=== PATIENT | male | born 1985 | race Caucasian/White ===

== ENCOUNTER 2017-09-27 09:56 | Day surgery (SDC) | payer OTHER ==
[~2017-09-27] VITALS: Ht 182.9 cm; Wt 116.2 kg
[~2017-09-27 09:56] MED LIST: ACET500 PO; ADAL40PEN; ADAL40PEN INJ; AZAT50 PO; CITA20 PO; CYCL10 PO; DIAZ10 PO; DIPATR PO; HYDACE5 PO; HYDR1TAB94 PO; IBUP800 PO; LAVAP17G PO; MECL12.5 PO; MESA250ER PO; MULVITA PO; Motion Sickness25 M1 PO; Norco 10-325 T1 EACH PO; Norco 5-325 Ta1 EACH PO; OMEP10ER PO; ONDA4ODT MM; OXYACE5T; OXYACE5T PO; OXYACE7.5T PO; OXYC5; OXYC5 PO; PRED10 PO; PRED20 PO; PRED5 PO; PROM25 PO; Percocet 5-3251 EACH PO; Prednisone20 MG PO; RABE20 PO; RXDIPATR PO; RXHYDACE PO; Roxicodone5 MG PO; SCOPOLAMINE1 EACH TD; SUCR1 PO; Tylenol325 MG PO; Zofran Odt4 MG SL; Zofran Odt8 MG SL
[2017-09-27] MEDS ORDERED: AZAT50 (10:21)
[2017-09-27] MEDS ORDERED: CYCL10 PO (10:21)
== END 2017-09-27 12:55 | disposition home or self-care (01) ==
LOC: ORSCSDS 09:56
PROVIDERS: Internal Medicine Gastroenterology
PROC: 0DBB8ZX Excision of Ileum, Via Natural or Artificial Opening Endoscopic, Diagnostic (ICD-10-PCS; principal; 2017-09-27 11:15)
PROC: 0DBN8ZX Excision of Sigmoid Colon, Via Natural or Artificial Opening Endoscopic, Diagnostic (ICD-10-PCS; principal; 2017-09-27 11:15)
PROC: 0DBE8ZX Excision of Large Intestine, Via Natural or Artificial Opening Endoscopic, Diagnostic (ICD-10-PCS; principal; 2017-09-27 11:15)
DX: K50.80 Crohn's disease of both small and large intestine without complications (principal); K63.5 Polyp of colon; Z79.899 Other long term (current) drug therapy
CPT/HCPCS: 88305; J2250; J7120

== ENCOUNTER 2018-10-05 13:25 | Emergency (ER) | payer OTHER ==
[~2018-10-05] VITALS: Ht 182.9 cm; Wt 111.1 kg
[~2018-10-05 13:25] MED LIST changes: +AZAT50
[2018-10-05] MEDS ORDERED: Vitamin D2000 UNIT PO (14:32)
[2018-10-05] MEDS ORDERED: Prednisone20 MG PO (16:14)
[2018-10-05] MEDS ORDERED: Percocet 10-321 EACH PO (16:14)
== END 2018-10-05 16:37 | disposition home or self-care (01) ==
LOC: ER 13:25
DX: M54.5 Low back pain (principal); M79.10 Myalgia, unspecified site; M41.9 Scoliosis, unspecified
CPT/HCPCS: 72100; 96372; 99283-25; J1885

== ENCOUNTER 2019-03-02 11:37 | Emergency (ER) | payer OTHER ==
[~2019-03-02] VITALS: Ht 182.9 cm; Wt 115.7 kg
[~2019-03-02 11:37] MED LIST changes: +Percocet 10-321 EACH PO; +Vitamin D2000 UNIT PO
== END 2019-03-02 14:02 | disposition home or self-care (01) ==
LOC: ER 11:37
DX: S61.210A Laceration without foreign body of right index finger without damage to nail, initial encounter (principal); W25.XXXA Contact with sharp glass, initial encounter; Z79.899 Other long term (current) drug therapy; F17.220 Nicotine dependence, chewing tobacco, uncomplicated
CPT/HCPCS: 12001; 73120; 90471; 90714; 99283-25

== ENCOUNTER → 2019-05-29 | Outpatient (CLI) | payer OTHER ==
[~2019-05-29] MED LIST changes: +Flomax0.4 MG PO; +KETO10 PO; +Percocet 7.5-31 EACH PO
== END | disposition home or self-care (01) ==
LOC: LAB EV 18:56 → LAB SHORT 18:56
DX: N39.0 Urinary tract infection, site not specified (principal)
CPT/HCPCS: 87086

== ENCOUNTER 2019-08-14 14:19 | Emergency (ER) | payer OTHER, BC ==
[~2019-08-14] VITALS: Ht 182.9 cm; Wt 113.4 kg
[2019-08-14 15:06] LABS: BASOPHILS ABSOLUTE AUTO 0.02 K/mm3 (0.00-0.23); BASOPHILS PERCENT AUTO 0 % (0-2); EOSINOPHILS ABSOLUTE AUTO 0.09 K/mm3 (0.00-0.68); EOSINOPHILS PERCENT AUTO 2 % (0-6); Hematocrit 46.6 % (37.0-53.0); Hemoglobin 15.6 g/dL (13.5-17.5); IMMATURE GRAN ABSOLUTE AUTO 0.03 K/mm3 (0.00-0.10); IMMATURE GRAN PERCENT AUTO 1 % (0-1); LYMPHOCYTES PERCENT AUTO 15 % (21-46); MONOCYTES ABSOLUTE AUTO 0.69 K/mm3 (0.16-1.47); MONOCYTES PERCENT AUTO 15 % (4-13); Mean Corpuscular HGB 30.8 pg (26.0-34.0); Mean Corpuscular HGB Conc 33.5 g/dL (31.5-36.5); Mean Corpuscular Volume 92 fL (80-100); Mean Platelet Volume 9.6 fL (9.1-12.4); NEUTROPHILS ABSOLUTE AUTO 3.22 K/mm3 (1.96-9.15); NEUTROPHILS PERCENT AUTO 68 % (41-73); Platelet Count 233 K/mm3 (150-400); RDW Coefficient Variation 11.9 % (11.7-14.2); RDW Standard Deviation 40.4 fL (35.1-46.3); Red Blood Cell Count 5.07 M/mm3 (4.30-5.90); White Blood Cell Count 4.75 K/mm3 (4.00-11.30)
[2019-08-14 15:21] LABS: Alanine Aminotransfer (ALT/SGP 30 U/L (12-78); Albumin, Blood 3.6 g/dL (3.4-5.0); Anion Gap 9 mmol/L (6-16); Blood Urea Nitrogen 10 mg/dL (8-24); CO2, Blood 21 mmol/L (21-32); Calcium, Blood 8.5 mg/dL (8.5-10.1); Chloride, Blood 107 mmol/L (98-108); Glucose, Blood 100 mg/dL (70-99); Potassium, Blood 3.8 mmol/L (3.5-5.5); Sodium, Blood 137 mmol/L (136-145)
[2019-08-14 15:24] LABS: Albumin/Globulin Ratio 0.9 (0.8-1.8); Alk Phos 71 U/L (50-136); Aspartate Aminotrans (AST/SGOT 16 U/L (12-37); Bilirubin, Total 0.3 mg/dL (0.1-1.0); Bun/Creatinine Ratio 13.7 (12.0-20.0); Creatinine, Blood 0.73 mg/dL (0.60-1.20); Glomerular Filtration Rate >60 (60-); Total Protein, Blood 7.6 g/dL (6.4-8.2)
[2019-08-14 17:47] LABS: Source, Urine Peds U Bag
[2019-08-14 18:13] LABS: Influenza A Negative (NEGATIVE); Influenza B Positive (NEGATIVE)
[2019-08-14 18:40] LABS: Bilirubin, Urine Neg (Neg); Blood, Urine 1+ (Neg); Glucose Qualitative, Urine Neg (Neg); Ketones, Urine Neg (Neg); Leukocyte Esterase, Urine Neg (Neg); Nitrite, Urine Neg (Neg); Protein, Urine Neg (Neg); Specific Gravity, Urine 1.015 (1.003-1.022); Urobilinogen, Urine NORM (Normal)
[2019-08-14] MEDS ORDERED: Norco 10-325 T1 EACH PO (18:40)
[2019-08-14] MEDS ORDERED: ONDA4ODT MM (18:40)
[2019-08-14] MEDS ORDERED: Tamiflu75 MG PO (18:40)
[2019-08-14 19:32] LABS: Appearance, Urine Clear (Clear); Color, Urine Yellow (P-Yellow)
[2019-08-14 19:33] LABS: Bacteria Rare /hpf; Red Blood Cells, Urine 0-2 /hpf (0-2); Squamous Epithelial Cells Rare /hpf (Few); White Blood Cells, Urine 0-2 /hpf (0-5)
== END 2019-08-14 18:49 | disposition home or self-care (01) ==
LOC: ER 14:19
PROVIDERS: Emergency Medicine; Physician Assistant
DX: J10.1 Influenza due to other identified influenza virus with other respiratory manifestations (principal); M41.9 Scoliosis, unspecified; K50.90 Crohn's disease, unspecified, without complications; Z79.899 Other long term (current) drug therapy; F17.220 Nicotine dependence, chewing tobacco, uncomplicated
CPT/HCPCS: 36415; 71046; 80053; 81001; 85025; 87804; 96361; 96374; 96375; 99283-25; J1885; J2405; J3010; J7030

== ENCOUNTER 2019-10-21 20:39 | Emergency (ER) | payer BC ==
[~2019-10-21] VITALS: Ht 182.9 cm; Wt 111.1 kg
[~2019-10-21 20:39] MED LIST changes: +Tamiflu75 MG PO
[2019-10-21 23:30] LABS: Source, Urine Clean Catch
[2019-10-21 23:33] LABS: Bilirubin, Urine Neg (Neg); Blood, Urine 1+ (Neg); Glucose Qualitative, Urine Neg (Neg); Ketones, Urine Neg (Neg); Leukocyte Esterase, Urine Neg (Neg); Nitrite, Urine Neg (Neg); Protein, Urine Neg (Neg); Urobilinogen, Urine NORM (Normal)
[2019-10-21 23:34] LABS: Appearance, Urine Clear (Clear); Color, Urine Yellow (P-Yellow)
[2019-10-21 23:38] LABS: White Blood Cells, Urine 0-2 /hpf (0-5)
[2019-10-21 23:39] LABS: Bacteria Few /hpf; Squamous Epithelial Cells Few /hpf (Few)
[2019-10-21] MEDS ORDERED: Norco 5-325 Ta1 EACH PO (23:53)
[2019-10-21] MEDS ORDERED: LIDO700A20 TOP (23:53)
[2019-10-21] MEDS ORDERED: Robaxin-750750 MG PO (23:53)
== END 2019-10-22 00:01 | disposition home or self-care (01) ==
LOC: ER 20:39
PROVIDERS: Physician Assistant
DX: S39.012A Strain of muscle, fascia and tendon of lower back, initial encounter (principal); Z87.19 Personal history of other diseases of the digestive system; M41.9 Scoliosis, unspecified; G47.30 Sleep apnea, unspecified; X58.XXXA Exposure to other specified factors, initial encounter
CPT/HCPCS: 81001; 99283; J1100

== ENCOUNTER → 2020-01-01 | Outpatient (CLI) | payer BC, OTHER ==
[~2020-01-01] MED LIST changes: +CYCL10; +LIDO700A20 TOP; +MECL25; +Percocet 5-3251 EACH; +Robaxin-750750 MG PO
[2020-01-03 08:10] LABS: HIV SCREEN 4TH GENERATION WRFX Non Reactive (Non Reactive)
== END | disposition home or self-care (01) ==
LOC: LAB 17:49 → LAB SHORT 17:49
PROVIDERS: Physician Assistant
DX: Z20.9 Contact with and (suspected) exposure to unspecified communicable disease (principal)
CPT/HCPCS: 86592; 87389

== ENCOUNTER 2020-06-12 12:27 | Emergency (ER) | payer OTHER, BC ==
[~2020-06-12] VITALS: Ht 182.9 cm; Wt 113.4 kg
[2020-06-12] MEDS ORDERED: HUMIRA PEN40 MG/0.2 SC (13:31)
== END 2020-06-12 14:17 | disposition home or self-care (01) ==
LOC: ER 12:27
DX: S56.912A Strain of unspecified muscles, fascia and tendons at forearm level, left arm, initial encounter (principal); Z79.899 Other long term (current) drug therapy; V59.40XA Driver of pick-up truck or van injured in collision with unspecified motor vehicles in traffic accident, initial encounter; Y92.410 Unspecified street and highway as the place of occurrence of the external cause
CPT/HCPCS: 73080; 99283-25

== ENCOUNTER → 2020-06-15 | Outpatient (CLI) | payer BC, OTHER ==
[~2020-06-15] MED LIST changes: +Cyclobenzaprine10 MG PO; +HUMIRA PEN40 MG/0.2 SC; +Prednisone10 M1 PO
[2020-06-22 01:08] LABS: TRICYCLIC ANTIDEP Negative ng/mL (Cutoff=100)
== END ==
LOC: LAB SHORT 09:50 → LAB EV 09:50
PROVIDERS: Family Medicine
DX: G89.4 Chronic pain syndrome (principal)
CPT/HCPCS: G0480; G0481

== ENCOUNTER 2020-06-25 22:52 | Emergency (ER) | payer BC, OTHER ==
[~2020-06-25] VITALS: Ht 182.9 cm; Wt 102.1 kg
[~2020-06-25 22:52] MED LIST changes: -Cyclobenzaprine10 MG PO; -Prednisone10 M1 PO
[2020-06-25] MEDS ORDERED: Cyclobenzaprine10 MG PO (23:40)
[2020-06-25 23:59] LABS: BASOPHILS ABSOLUTE AUTO 0.02 K/mm3 (0.00-0.23); BASOPHILS PERCENT AUTO 0 % (0-2); EOSINOPHILS ABSOLUTE AUTO 0.03 K/mm3 (0.00-0.68); EOSINOPHILS PERCENT AUTO 0 % (0-6); Hematocrit 40.6 % (37.0-53.0); Hemoglobin 12.9 g/dL (13.5-17.5); IMMATURE GRAN ABSOLUTE AUTO 0.02 K/mm3 (0.00-0.10); IMMATURE GRAN PERCENT AUTO 0 % (0-1); LYMPHOCYTES ABSOLUTE AUTO 1.06 K/mm3 (0.84-5.20); LYMPHOCYTES PERCENT AUTO 15 % (21-46); MONOCYTES ABSOLUTE AUTO 0.86 K/mm3 (0.16-1.47); MONOCYTES PERCENT AUTO 12 % (4-13); Mean Corpuscular HGB 28.5 pg (26.0-34.0); Mean Corpuscular HGB Conc 31.8 g/dL (31.5-36.5); Mean Corpuscular Volume 90 fL (80-100); Mean Platelet Volume 8.7 fL (9.1-12.4); NEUTROPHILS ABSOLUTE AUTO 5.01 K/mm3 (1.96-9.15); NEUTROPHILS PERCENT AUTO 72 % (41-73); Platelet Count 314 K/mm3 (150-400); RDW Standard Deviation 42.5 fL (35.1-46.3); Red Blood Cell Count 4.53 M/mm3 (4.30-5.90)
[2020-06-26 00:15] LABS: Alanine Aminotransfer (ALT/SGP 22 U/L (12-78); Albumin/Globulin Ratio 0.7 (0.8-1.8); Alk Phos 70 U/L (50-136); Anion Gap 6 mmol/L (6-16); Aspartate Aminotrans (AST/SGOT 17 U/L (12-37); Bilirubin, Total 0.5 mg/dL (0.1-1.0); Blood Urea Nitrogen 12 mg/dL (8-24); Bun/Creatinine Ratio 15.3 (12.0-20.0); CO2, Blood 26 mmol/L (21-32); Calcium, Blood 8.4 mg/dL (8.5-10.1); Chloride, Blood 108 mmol/L (98-108); Creatinine, Blood 0.79 mg/dL (0.60-1.20); Globulin, Blood 4.2 g/dL (2.2-4.0); Glomerular Filtration Rate >60 (60-); Glucose, Blood 88 mg/dL (70-99); Sodium, Blood 140 mmol/L (136-145); Total Protein, Blood 7.2 g/dL (6.4-8.2)
[2020-06-26 00:37] LABS: Source, Urine Clean Catch
[2020-06-26 00:41] LABS: Blood, Urine 1+ (Neg); Glucose Qualitative, Urine Neg (Neg); Ketones, Urine 1+ (Neg); Leukocyte Esterase, Urine Neg (Neg); Nitrite, Urine Neg (Neg); Protein, Urine 1+ (Neg); Urobilinogen, Urine NORM (Normal)
[2020-06-26 00:46] LABS: Appearance, Urine Clear (Clear); Bilirubin, Urine 1+ (Neg); Color, Urine Yellow (P-Yellow)
[2020-06-26 00:48] LABS: Bacteria Not Seen /hpf; Mucus Light (0-Heavy); Red Blood Cells, Urine Rare /hpf (0-2); Squamous Epithelial Cells Not Seen /hpf (Few); White Blood Cells, Urine Not Seen /hpf (0-5)
[2020-06-26] MEDS ORDERED: Prednisone10 M1 PO (02:35)
== END 2020-06-26 02:49 | disposition home or self-care (01) ==
LOC: ER 22:52
PROVIDERS: Emergency Medicine
DX: K50.00 Crohn's disease of small intestine without complications (principal); Z79.899 Other long term (current) drug therapy
CPT/HCPCS: 36415; 74177; 80053; 81001; 83690; 85025; 86850; 86900; 86901; 96374; 96375; 96376; 99284-25; J1170; J2405; J7512; Q9967

== ENCOUNTER 2020-07-26 10:55 | Inpatient (IN) | payer BC, OTHER ==
[~2020-07-26] VITALS: Ht 182.9 cm; Wt 97.3 kg
[~2020-07-26 10:55] MED LIST changes: +Cyclobenzaprine10 MG PO; +Prednisone10 M1 PO
[2020-07-26 12:16] LABS: Alanine Aminotransfer (ALT/SGP 23 U/L (12-78); Albumin, Blood 2.6 g/dL (3.4-5.0); Albumin/Globulin Ratio 0.6 (0.8-1.8); Alk Phos 77 U/L (50-136); Anion Gap 9 mmol/L (6-16); Aspartate Aminotrans (AST/SGOT 13 U/L (12-37); Bilirubin, Total 0.8 mg/dL (0.1-1.0); Blood Urea Nitrogen 11 mg/dL (8-24); Bun/Creatinine Ratio 13.3 (12.0-20.0); CO2, Blood 26 mmol/L (21-32); Calcium, Blood 8.1 mg/dL (8.5-10.1); Chloride, Blood 103 mmol/L (98-108); Creatinine, Blood 0.83 mg/dL (0.60-1.20); Globulin, Blood 4.1 g/dL (2.2-4.0); Glomerular Filtration Rate >60 (60-); Glucose, Blood 129 mg/dL (70-99); Hematocrit 39.4 % (37.0-53.0); Mean Corpuscular HGB 28.6 pg (26.0-34.0); Mean Corpuscular Volume 87 fL (80-100); Potassium, Blood 3.4 mmol/L (3.5-5.5); RDW Coefficient Variation 13.6 % (11.7-14.2); RDW Standard Deviation 42.8 fL (35.1-46.3); Red Blood Cell Count 4.55 M/mm3 (4.30-5.90); Sodium, Blood 138 mmol/L (136-145); Total Protein, Blood 6.7 g/dL (6.4-8.2); White Blood Cell Count 9.86 K/mm3 (4.00-11.30)
[2020-07-26 12:19] LABS: Mean Platelet Volume 9.2 fL (9.1-12.4); Platelet Count 263 K/mm3 (150-400)
[2020-07-26 12:22] LABS: BAND PERCENT MAN 13 % (0-8); BASOPHILS PERCENT MAN 0 % (0-2); EOSINOPHILS PERCENT MAN 0 % (0-6); LYMPHOCYTES ABSOLUTE MAN 1.28 K/mm3 (0.84-5.20); LYMPHOCYTES PERCENT MAN 13 % (21-46); MONOCYTES ABSOLUTE MAN 1.47 K/mm3 (0.16-1.47); MONOCYTES PERCENT MAN 15 % (4-13); NEUTROPHILS ABSOLUTE MAN 7.09 K/mm3 (1.96-9.15); SEG NEUTROPHILS PERCENT MAN 59 % (41-73); TOTAL CELLS COUNTED 100
[2020-07-26] MEDS ORDERED: AZAT50 PO (16:34)
[2020-07-26] MEDS ORDERED: CYCL10 PO (19:57)
[2020-07-26] MEDS ORDERED: Percocet 5-3251 EACH PO (19:57)
[2020-07-27 01:47] LABS: Influenza A, PCR Negative (NEGATIVE); Influenza B, PCR Negative (NEGATIVE); Resp Syncytial Virus, PCR Negative (NEGATIVE); SARS-Cov-2 (COVID-19) PCR, MMC Negative (NEGATIVE)
[2020-07-27 05:30] LABS: Hematocrit 37.1 % (37.0-53.0); Hemoglobin 11.8 g/dL (13.5-17.5); Mean Corpuscular HGB 28.9 pg (26.0-34.0); Mean Corpuscular HGB Conc 31.8 g/dL (31.5-36.5); Mean Corpuscular Volume 91 fL (80-100); Mean Platelet Volume 8.9 fL (9.1-12.4); Platelet Count 238 K/mm3 (150-400); RDW Coefficient Variation 13.8 % (11.7-14.2); RDW Standard Deviation 46.4 fL (35.1-46.3); Red Blood Cell Count 4.09 M/mm3 (4.30-5.90); White Blood Cell Count 6.79 K/mm3 (4.00-11.30)
[2020-07-27 05:42] LABS: International Normalized Ratio 1.12; Prothrombin Time Results 11.9 Sec (9.7-11.5)
--- NOTE | 2020-07-27 05:54 | NUR ---
07/27/20 0545 AWAKE ALL NIGHT. NO STOOLS BUT VOIDING WELL. MEDICATED FOR PAIN TWICE THIS SHIFT WITH RELIEF. COLONOSCOPY PREP STARTED NOW AND HAS HAD THIS PROCEDURE SEVERAL TIMES IN THE PAST. 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
[2020-07-27 05:56] LABS: BAND PERCENT MAN 37 % (0-8); BASOPHILS PERCENT MAN 0 % (0-2); EOSINOPHILS PERCENT MAN 0 % (0-6); LYMPHOCYTES ABSOLUTE MAN 0.13 K/mm3 (0.84-5.20); LYMPHOCYTES PERCENT MAN 2 % (21-46); MONOCYTES PERCENT MAN 6 % (4-13); NEUTROPHILS ABSOLUTE MAN 6.24 K/mm3 (1.96-9.15); SEG NEUTROPHILS PERCENT MAN 55 % (41-73); TOTAL CELLS COUNTED 100
[2020-07-27 05:57] LABS: Alanine Aminotransfer (ALT/SGP 20 U/L (12-78); Albumin, Blood 2.3 g/dL (3.4-5.0); Albumin/Globulin Ratio 0.6 (0.8-1.8); Alk Phos 66 U/L (50-136); Anion Gap 8 mmol/L (6-16); Aspartate Aminotrans (AST/SGOT 8 U/L (12-37); Bilirubin, Total 0.6 mg/dL (0.1-1.0); Blood Urea Nitrogen 9 mg/dL (8-24); Bun/Creatinine Ratio 14.8 (12.0-20.0); CO2, Blood 24 mmol/L (21-32); Chloride, Blood 108 mmol/L (98-108); Creatinine, Blood 0.61 mg/dL (0.60-1.20); Globulin, Blood 3.8 g/dL (2.2-4.0); Glomerular Filtration Rate >60 (60-); Glucose, Blood 130 mg/dL (70-99); Potassium, Blood 3.8 mmol/L (3.5-5.5); Sodium, Blood 140 mmol/L (136-145); Total Protein, Blood 6.1 g/dL (6.4-8.2)
--- NOTE | 2020-07-27 18:11 | NUR ---
SUMMARY: Admit 07/26/20 07/27/[address] Waters, no eta for discharge at this time. Diagnositic colonoscopy planned . Dr Black consult and workup.
--- NOTE | 2020-07-27 18:41 | NUR ---
PT BEEN PREPPING ALL SHIFT FOR COLONOSCOPY . MEDICATED PER EMAR. PT IS ALERT AND ORIENTED AND ABLE TO EXPRESS ANY NEEDS. CALL LIGHT WITHIN REACH.
--- NOTE | 2020-07-27 23:58 | NUR ---
History, Chart, Medications and Allergies reviewed before start of procedure. Patient confirms NPO status and agrees with scheduled surgery. Reports taking all colon prep and has clear results.
--- NOTE | 2020-07-28 00:10 | NUR ---
07/28/20 0010 EleanorShasta Renay History, Chart, Medications and Allergies reviewed before start of procedure.Patient confirms NPO status and agrees with scheduled surgery.3-LEAD EKG REVIEWED WITH PHYSICIAN PRIOR TO START OF PROCEDURE.MONITOR INTACT WITH CONTINUOUS PULSE OXIMETRY AND INTERMITTENT BP.O2 VIA N/C INTACT THROUGHOUT SEDATION/PROCEDURE. PATIENT DETERMINED TO BE ASA APPROPRIATE FOR PROPOFOL SEDATION PRIOR TO START OF PROCEDURE BY DR. MCINTOSH
--- NOTE | 2020-07-28 01:38 | NUR ---
07/27/20 8613 OR HERE TO SYNTHETIC SOIL BLOCKS PULPER THE PT FOR COLONOSCOPY. PT NPO SINCE 1400.
--- NOTE | 2020-07-28 01:39 | NUR ---
07/28/20 0110 PT RETURNED FROM COLONOSCOPY VIA [facility]. AWAKE AND ALERT. REQUESTING ORAL FLUIDS/FOOD. VITALS STABLE. SANDWICH, JELLO AND JUICE/WATER GIVEN. DENIES ANY NAUSEA AND ONLY MILD ABD. DISCOMFORT. VOIDED 520 ML URINE. RESP CARE CALLED TO SET UP CONTINUOUS PULSE OXIMETER.
--- NOTE | 2020-07-28 07:33 | NUR ---
07/28/20 0600 POST-OP VITALS AFTER COLONOSCOPY REMAIN STABLE. GREAT ORAL INTAKE OF FLUIDS/FOOD. ENCOURAGE PAIN PILL THIS AM BUT REQUESTED TO TAKE IV MED. SEE MAR FOR MEDS GIVEN. VOIDING QS. NO STOOLS THIS SHIFT.
[2020-07-28] MEDS ORDERED: PRED20 PO (11:46)
--- NOTE | 2020-07-28 12:06 | NUR ---
PT TO DISCHARGE HOME. IV REMOVED, NO SS OF INFECTION NOTED. PT EDUCATED REGARDING NEW MEDICATION. MEDS SENT TO [facility]. PT TO FOLLOW UP WITH PCP. PT TO GO HOME WITH GIRLFRIEND.
--- NOTE | 2020-07-28 17:21 | NUR ---
Admit 07/26/20 07/28/20 Discharge home, The plan will be to discharge him on a regimen of p.o. prednisone 40 mg daily until he follows up with gastroenterology in the clinic. I believe he can follow-up with them within the next 2 weeks. He will also follow-up with PCP within 1 week. Patient was discharged prior to [facility] patient care specialist visit. Transition of care [facility] will call patient at home to schedule 1 week appointment.
== END 2020-07-28 12:16 | disposition home or self-care (01) | DRG 387 ==
LOC: ER 10:55 → MEDS 16:54
PROVIDERS: Emergency Medicine; Internal Medicine Gastroenterology; ADMIT Family Medicine
PROC: 0DBB8ZX Excision of Ileum, Via Natural or Artificial Opening Endoscopic, Diagnostic (ICD-10-PCS; principal; 2020-07-28)
DX: K50.00 Crohn's disease of small intestine without complications (principal); E87.6 Hypokalemia; K21.9 Gastro-esophageal reflux disease without esophagitis
CPT/HCPCS: 0241U; 36415; 80053; 83690; 85025; 85610; 87493; 88305; 94762; 96374; 96375; 99285-25; A9270; J1170; J1650; J2250; J2405; J2704; J2920; J2930; J3480; J7120; J7500

== ENCOUNTER → 2021-05-03 | Outpatient (CLI) | payer BC, OTHER ==
[2021-05-03 15:07] LABS: Hematocrit 43.3 % (37.0-53.0); Hemoglobin 14.6 g/dL (13.5-17.5); Mean Corpuscular HGB 29.4 pg (26.0-34.0); Mean Corpuscular HGB Conc 33.7 g/dL (31.5-36.5); Mean Corpuscular Volume 87 fL (80-100); Mean Platelet Volume 9.3 fL (9.1-12.4); Platelet Count 308 K/mm3 (150-400); RDW Coefficient Variation 13.3 % (11.7-14.2); RDW Standard Deviation 42.5 fL (35.1-46.3); Red Blood Cell Count 4.96 M/mm3 (4.30-5.90); White Blood Cell Count 3.18 K/mm3 (4.00-11.30)
[2021-05-03 15:14] LABS: Alanine Aminotransfer (ALT/SGP 26 U/L (12-78); Albumin, Blood 3.2 g/dL (3.4-5.0); Albumin/Globulin Ratio 0.7 (0.8-1.8); Alk Phos 77 U/L (40-126); Anion Gap 11 mmol/L (6-16); Aspartate Aminotrans (AST/SGOT 11 U/L (12-37); Bilirubin, Total 0.4 mg/dL (0.1-1.0); Blood Urea Nitrogen 10 mg/dL (8-24); Bun/Creatinine Ratio 10.9 (12.0-20.0); CO2, Blood 28 mmol/L (21-32); Calcium, Blood 8.8 mg/dL (8.5-10.1); Chloride, Blood 104 mmol/L (98-108); Creatinine, Blood 0.92 mg/dL (0.60-1.20); Globulin, Blood 4.7 g/dL (2.2-4.0); Glomerular Filtration Rate >60 (60-); Glucose, Blood 109 mg/dL (70-99); Potassium, Blood 3.4 mmol/L (3.5-5.5); Sodium, Blood 143 mmol/L (136-145); Total Protein, Blood 7.9 g/dL (6.4-8.2)
[2021-05-03 15:25] LABS: BAND PERCENT MAN 21 % (0-8); BASOPHILS ABSOLUTE MAN 0.03 K/mm3 (0.00-0.23); BASOPHILS PERCENT MAN 1 % (0-2); EOSINOPHILS ABSOLUTE MAN 0.15 K/mm3 (0.00-0.68); EOSINOPHILS PERCENT MAN 5 % (0-6); LYMPHOCYTES % ATYPICAL MANUAL 4 % (0-0); LYMPHOCYTES ABSOLUTE MAN 1.08 K/mm3 (0.84-5.20); LYMPHOCYTES PERCENT MAN 30 % (21-46); METAMYELOCYTE ABSOLUTE MAN 0.06 K/mm3 (0.00-0.00); METAMYELOCYTE PERCENT MAN 2 % (0-0); MONOCYTES ABSOLUTE MAN 0.89 K/mm3 (0.16-1.47); MONOCYTES PERCENT MAN 28 % (4-13); MYELOCYTE ABSOLUTE MAN 0.03 K/mm3 (0.00-0.00); MYELOCYTE PERCENT MAN 1 % (0-0); NEUTROPHILS ABSOLUTE MAN 0.92 K/mm3 (1.96-9.15); SEG NEUTROPHILS PERCENT MAN 8 % (41-73); TOTAL CELLS COUNTED 100
== END | disposition home or self-care (01) ==
LOC: LAB SHORT 15:00 → LAB 15:00
PROVIDERS: Physician Assistant Medical
DX: R42 Dizziness and giddiness (principal)
CPT/HCPCS: 80053; 85025

== ENCOUNTER 2021-06-08 08:39 | Emergency (ER) | payer BC, OTHER ==
[~2021-06-08] VITALS: Ht 182.9 cm; Wt 106.1 kg
[2021-06-08] MEDS ORDERED: ERGO50000 PO (08:52)
[2021-06-08 09:30] LABS: BASOPHILS ABSOLUTE AUTO 0.03 K/mm3 (0.00-0.23); BASOPHILS PERCENT AUTO 1 % (0-2); EOSINOPHILS ABSOLUTE AUTO 0.11 K/mm3 (0.00-0.68); EOSINOPHILS PERCENT AUTO 2 % (0-6); Hematocrit 40.7 % (37.0-53.0); Hemoglobin 13.5 g/dL (13.5-17.5); IMMATURE GRAN ABSOLUTE AUTO 0.03 K/mm3 (0.00-0.10); IMMATURE GRAN PERCENT AUTO 1 % (0-1); LYMPHOCYTES ABSOLUTE AUTO 1.64 K/mm3 (0.84-5.20); LYMPHOCYTES PERCENT AUTO 31 % (21-46); MONOCYTES ABSOLUTE AUTO 0.67 K/mm3 (0.16-1.47); MONOCYTES PERCENT AUTO 13 % (4-13); Mean Corpuscular HGB 29.4 pg (26.0-34.0); Mean Corpuscular HGB Conc 33.2 g/dL (31.5-36.5); Mean Corpuscular Volume 89 fL (80-100); Mean Platelet Volume 8.9 fL (9.1-12.4); NEUTROPHILS ABSOLUTE AUTO 2.88 K/mm3 (1.96-9.15); NEUTROPHILS PERCENT AUTO 54 % (41-73); Platelet Count 300 K/mm3 (150-400); RDW Coefficient Variation 13.1 % (11.7-14.2); RDW Standard Deviation 42.6 fL (35.1-46.3); Red Blood Cell Count 4.59 M/mm3 (4.30-5.90); White Blood Cell Count 5.36 K/mm3 (4.00-11.30)
[2021-06-08 09:55] LABS: Alanine Aminotransfer (ALT/SGP 24 U/L (12-78); Albumin, Blood 3.1 g/dL (3.4-5.0); Albumin/Globulin Ratio 0.7 (0.8-1.8); Alk Phos 63 U/L (50-136); Anion Gap 8 mmol/L (6-16); Aspartate Aminotrans (AST/SGOT 15 U/L (12-37); Bilirubin, Total 0.4 mg/dL (0.1-1.0); Blood Urea Nitrogen 12 mg/dL (8-24); Bun/Creatinine Ratio 14.4 (12.0-20.0); CO2, Blood 23 mmol/L (21-32); Calcium, Blood 9.1 mg/dL (8.5-10.1); Chloride, Blood 110 mmol/L (98-108); Creatinine, Blood 0.83 mg/dL (0.60-1.20); Globulin, Blood 4.4 g/dL (2.2-4.0); Glomerular Filtration Rate >60 (60-); Glucose, Blood 95 mg/dL (70-99); Potassium, Blood 4.1 mmol/L (3.5-5.5); Sodium, Blood 141 mmol/L (136-145); Total Protein, Blood 7.5 g/dL (6.4-8.2)
[2021-06-08 11:29] LABS: Source, Urine Clean Catch
[2021-06-08 11:32] LABS: Appearance, Urine Clear (Clear); Bilirubin, Urine Neg (Neg); Blood, Urine 5+ (Neg); Color, Urine Yellow (P-Yellow); Glucose Qualitative, Urine Neg (Neg); Ketones, Urine Neg (Neg); Leukocyte Esterase, Urine Neg (Neg); Nitrite, Urine Neg (Neg); Protein, Urine 1+ (Neg); Urobilinogen, Urine NORM (Normal)
[2021-06-08 11:50] LABS: Squamous Epithelial Cells Few /hpf (Few)
[2021-06-08 11:51] LABS: Bacteria Many /hpf
[2021-06-08 11:52] LABS: Mucus Light (0-Heavy); Red Blood Cells, Urine TNTC /hpf (0-2)
[2021-06-08] MEDS ORDERED: HYDR1TAB94 PO (11:54)
[2021-06-08] MEDS ORDERED: CEPH500 PO (16:50)
== END 2021-06-08 12:10 | disposition home or self-care (01) ==
LOC: ER 08:39
PROVIDERS: Physician Assistant
DX: N13.2 Hydronephrosis with renal and ureteral calculous obstruction (principal); Z79.899 Other long term (current) drug therapy
CPT/HCPCS: 36415; 74177; 80053; 81001; 83690; 85025; 96374-59; 96375; 96376; 99284-25; J1170; J2405; J7030; Q9967

== ENCOUNTER 2021-07-01 08:04 | Emergency (ER) | payer BC, OTHER ==
[~2021-07-01] VITALS: Ht 182.9 cm; Wt 106.1 kg
[~2021-07-01 08:04] MED LIST changes: +CEPH500 PO; +ERGO50000 PO
[2021-07-01 08:35] LABS: Source, Urine Clean Catch
[2021-07-01 08:49] LABS: BASOPHILS ABSOLUTE AUTO 0.02 K/mm3 (0.00-0.23); BASOPHILS PERCENT AUTO 0 % (0-2); EOSINOPHILS ABSOLUTE AUTO 0.17 K/mm3 (0.00-0.68); EOSINOPHILS PERCENT AUTO 3 % (0-6); Hemoglobin 13.6 g/dL (13.5-17.5); IMMATURE GRAN ABSOLUTE AUTO 0.02 K/mm3 (0.00-0.10); IMMATURE GRAN PERCENT AUTO 0 % (0-1); LYMPHOCYTES ABSOLUTE AUTO 1.45 K/mm3 (0.84-5.20); LYMPHOCYTES PERCENT AUTO 23 % (21-46); MONOCYTES ABSOLUTE AUTO 0.99 K/mm3 (0.16-1.47); MONOCYTES PERCENT AUTO 16 % (4-13); Mean Corpuscular HGB 30.2 pg (26.0-34.0); Mean Corpuscular Volume 89 fL (80-100); Mean Platelet Volume 8.9 fL (9.1-12.4); NEUTROPHILS ABSOLUTE AUTO 3.71 K/mm3 (1.96-9.15); NEUTROPHILS PERCENT AUTO 58 % (41-73); Platelet Count 289 K/mm3 (150-400); RDW Coefficient Variation 13.2 % (11.7-14.2); RDW Standard Deviation 42.8 fL (35.1-46.3); White Blood Cell Count 6.36 K/mm3 (4.00-11.30)
[2021-07-01 09:11] LABS: Alanine Aminotransfer (ALT/SGP 24 U/L (12-78); Albumin, Blood 3.2 g/dL (3.4-5.0); Albumin/Globulin Ratio 0.9 (0.8-1.8); Alk Phos 64 U/L (50-136); Anion Gap 6 mmol/L (6-16); Aspartate Aminotrans (AST/SGOT 18 U/L (12-37); Bilirubin, Total 0.5 mg/dL (0.1-1.0); Blood Urea Nitrogen 12 mg/dL (8-24); Bun/Creatinine Ratio 15.6 (12.0-20.0); CO2, Blood 23 mmol/L (21-32); Calcium, Blood 8.3 mg/dL (8.5-10.1); Chloride, Blood 110 mmol/L (98-108); Creatinine, Blood 0.77 mg/dL (0.60-1.20); Globulin, Blood 3.6 g/dL (2.2-4.0); Glomerular Filtration Rate >60 (60-); Glucose, Blood 100 mg/dL (70-99); Potassium, Blood 3.9 mmol/L (3.5-5.5); Sodium, Blood 139 mmol/L (136-145); Total Protein, Blood 6.8 g/dL (6.4-8.2)
[2021-07-01 09:20] LABS: Appearance, Urine Clear (Clear); Bilirubin, Urine Neg (Neg); Blood, Urine Neg (Neg); Color, Urine Yellow (P-Yellow); Glucose Qualitative, Urine Neg (Neg); Ketones, Urine Neg (Neg); Leukocyte Esterase, Urine Neg (Neg); Nitrite, Urine Neg (Neg); Protein, Urine Neg (Neg); Specific Gravity, Urine 1.015 (1.003-1.022); Urobilinogen, Urine NORM (Normal)
[2021-07-01] MEDS ORDERED: KETO10 PO (09:41)
[2021-07-01] MEDS ORDERED: ONDA4ODT MM (09:41)
[2021-07-01] MEDS ORDERED: Flomax0.4 MG PO (09:41)
[2021-07-01] MEDS ORDERED: Percocet 5-3251 EACH PO (09:41)
== END 2021-07-01 09:53 | disposition home or self-care (01) ==
LOC: ER 08:04
PROVIDERS: Physician Assistant
DX: R10.9 Unspecified abdominal pain (principal)
CPT/HCPCS: 36415; 76770; 80053; 81003; 85025; J1170; J1885; J2405; J7030

== ENCOUNTER 2021-07-19 18:06 | Emergency (ER) | payer BC, OTHER ==
[~2021-07-19] VITALS: Ht 182.9 cm; Wt 81.7 kg
== END 2021-07-19 19:24 | disposition home or self-care (01) ==
LOC: ER 18:06
DX: U07.1 COVID-19 (principal)
CPT/HCPCS: 99283

== ENCOUNTER 2021-08-24 17:13 | Inpatient (IN) | payer BC, OTHER ==
[~2021-08-24] VITALS: Ht 182.9 cm; Wt 106.1 kg
[2021-08-24 17:54] LABS: BASOPHILS ABSOLUTE AUTO 0.04 K/mm3 (0.00-0.23); BASOPHILS PERCENT AUTO 1 % (0-2); EOSINOPHILS ABSOLUTE AUTO 0.09 K/mm3 (0.00-0.68); EOSINOPHILS PERCENT AUTO 1 % (0-6); Hematocrit 42.6 % (37.0-53.0); Hemoglobin 14.7 g/dL (13.5-17.5); IMMATURE GRAN ABSOLUTE AUTO 0.03 K/mm3 (0.00-0.10); IMMATURE GRAN PERCENT AUTO 1 % (0-1); LYMPHOCYTES PERCENT AUTO 24 % (21-46); MONOCYTES ABSOLUTE AUTO 0.88 K/mm3 (0.16-1.47); MONOCYTES PERCENT AUTO 14 % (4-13); Mean Corpuscular HGB 29.5 pg (26.0-34.0); Mean Corpuscular HGB Conc 34.5 g/dL (31.5-36.5); Mean Corpuscular Volume 86 fL (80-100); Mean Platelet Volume 8.7 fL (9.1-12.4); NEUTROPHILS ABSOLUTE AUTO 3.69 K/mm3 (1.96-9.15); NEUTROPHILS PERCENT AUTO 59 % (41-73); Platelet Count 321 K/mm3 (150-400); RDW Coefficient Variation 12.6 % (11.7-14.2); RDW Standard Deviation 39.2 fL (35.1-46.3); Red Blood Cell Count 4.98 M/mm3 (4.30-5.90); White Blood Cell Count 6.23 K/mm3 (4.00-11.30)
[2021-08-24 18:11] LABS: Alanine Aminotransfer (ALT/SGP 37 U/L (12-78); Albumin, Blood 3.1 g/dL (3.4-5.0); Albumin/Globulin Ratio 0.7 (0.8-1.8); Alk Phos 78 U/L (50-136); Anion Gap 6 mmol/L (6-16); Aspartate Aminotrans (AST/SGOT 16 U/L (12-37); Bilirubin, Total 0.5 mg/dL (0.1-1.0); Blood Urea Nitrogen 12 mg/dL (8-24); Bun/Creatinine Ratio 13.9 (12.0-20.0); CO2, Blood 20 mmol/L (21-32); Calcium, Blood 8.7 mg/dL (8.5-10.1); Chloride, Blood 111 mmol/L (98-108); Creatinine, Blood 0.86 mg/dL (0.60-1.20); Globulin, Blood 4.3 g/dL (2.2-4.0); Glomerular Filtration Rate >60 (60-); Glucose, Blood 99 mg/dL (70-99); Potassium, Blood 3.8 mmol/L (3.5-5.5); Sodium, Blood 137 mmol/L (136-145); Total Protein, Blood 7.4 g/dL (6.4-8.2)
[2021-08-24] MEDS ORDERED: CHOLESTYRAMI239.4 G1 PO (20:29)
[2021-08-24] MEDS ORDERED: IRON18 MG PO (20:30)
--- NOTE | 2021-08-24 23:58 | NUR ---
ADMISSION NOTE: PT ARRIVES TO ROOM VIA WC FROM ED AT 2320. PT CHANGED INTO GOWN. PT INDEPENDENT IN ROOM. COMPLAINS OF LOWER ABD AND PELVIC PAIN. PT MEDICATED WITH DILAUDID PER EMAR. PT ALSO COMPLAINS OF BEING HUNGRY. PT GIVEN CLEAR LIQUIDS A SNACK. PT ADMITTED FOR SBO WITH A HX OF CHROHN'S. PT PAIN IS SUBSIDING AND HE IS COVERED IN BED RESTING. CALL LIGHT IS WITHIN HIS REACH.
--- NOTE | 2021-08-25 03:02 | NUR ---
SHIFT SUMMARY NO ACUTE CHANGES TO PT CONDITION AT THIS TIME. JUST CHECKED ON PT AND HE WAS SLEEPING. NO COMPLAINTS AT THIS TIME. CALL LIGHT IS WITHIN HIS REACH. STILL WAITING ON A STOOL SAMPLE IN ORDER TO POSSIBLY DISCHARGE HIS ISOLATION ORDER.
[2021-08-25 05:06] LABS: BASOPHILS ABSOLUTE AUTO 0.01 K/mm3 (0.00-0.23); BASOPHILS PERCENT AUTO 0 % (0-2); EOSINOPHILS ABSOLUTE AUTO 0.02 K/mm3 (0.00-0.68); EOSINOPHILS PERCENT AUTO 0 % (0-6); Hematocrit 40.1 % (37.0-53.0); Hemoglobin 13.5 g/dL (13.5-17.5); IMMATURE GRAN ABSOLUTE AUTO 0.01 K/mm3 (0.00-0.10); IMMATURE GRAN PERCENT AUTO 0 % (0-1); LYMPHOCYTES ABSOLUTE AUTO 0.72 K/mm3 (0.84-5.20); LYMPHOCYTES PERCENT AUTO 14 % (21-46); MONOCYTES ABSOLUTE AUTO 0.24 K/mm3 (0.16-1.47); MONOCYTES PERCENT AUTO 5 % (4-13); Mean Corpuscular HGB 30.2 pg (26.0-34.0); Mean Corpuscular HGB Conc 33.7 g/dL (31.5-36.5); Mean Corpuscular Volume 90 fL (80-100); NEUTROPHILS ABSOLUTE AUTO 4.18 K/mm3 (1.96-9.15); NEUTROPHILS PERCENT AUTO 81 % (41-73); Platelet Count 281 K/mm3 (150-400); RDW Coefficient Variation 12.6 % (11.7-14.2); RDW Standard Deviation 41.5 fL (35.1-46.3); Red Blood Cell Count 4.47 M/mm3 (4.30-5.90); White Blood Cell Count 5.18 K/mm3 (4.00-11.30)
[2021-08-25 05:33] LABS: Alanine Aminotransfer (ALT/SGP 33 U/L (12-78); Albumin, Blood 2.8 g/dL (3.4-5.0); Albumin/Globulin Ratio 0.7 (0.8-1.8); Alk Phos 69 U/L (50-136); Anion Gap 5 mmol/L (6-16); Aspartate Aminotrans (AST/SGOT 10 U/L (12-37); Bilirubin, Total 0.6 mg/dL (0.1-1.0); Blood Urea Nitrogen 9 mg/dL (8-24); Bun/Creatinine Ratio 10.6 (12.0-20.0); CO2, Blood 23 mmol/L (21-32); Calcium, Blood 8.6 mg/dL (8.5-10.1); Chloride, Blood 111 mmol/L (98-108); Creatinine, Blood 0.85 mg/dL (0.60-1.20); Globulin, Blood 4.1 g/dL (2.2-4.0); Glomerular Filtration Rate >60 (60-); Glucose, Blood 129 mg/dL (70-99); Potassium, Blood 4.4 mmol/L (3.5-5.5); Sodium, Blood 139 mmol/L (136-145); Total Protein, Blood 6.9 g/dL (6.4-8.2)
--- NOTE | 2021-08-25 18:39 | NUR ---
SHIFT SUMMARY PT IS SCHEDULED FOR A COLONOSCOPY TOMORROW. HE WILL TAKE BOWEL PREP TONIGHT AND TOMORROW AND BE NPO AFTER BREAKFAST. HE IS STILL HAVING LOWER ABDOMINAL PAIN AND HAS BEEN MEDICATED PER MAR. WILL CONTINUE TO MONITOR.
[2021-08-25 18:49] LABS: Influenza A, PCR NEGATIVE (NEGATIVE); Influenza B, PCR NEGATIVE (NEGATIVE); Resp Syncytial Virus, PCR NEGATIVE (NEGATIVE); SARS-Cov-2 (COVID-19) PCR, MMC NEGATIVE (NEGATIVE)
[2021-08-26 00:54] LABS: Campylobacter Sp Not Detected (NOT DETECT); E. Coli O157 Not Detected (NOT DETECT); Enteroaggregative E. coli-EAEC Not Detected (NOT DETECT); Enteropathogenic E. coli-EPEC Not Detected (NOT DETECT); Enterotoxigenic E. coli-ETEC Not Detected (NOT DETECT); Plesiomonas Shigelloides Not Detected (NOT DETECT); Salmonella Sp Not Detected (NOT DETECT); Shiga Toxin-prod E. coli-STEC Not Detected (NOT DETECT); Vibrio Cholerae Not Detected (NOT DETECT); Vibrio Sp Not Detected (NOT DETECT); Yersinia Enterocolitica Not Detected (NOT DETECT)
[2021-08-26 00:55] LABS: Adenovirus F 40/41 Not Detected (NOT DETECT); Astrovirus Not Detected (NOT DETECT); Cryptosporidium Not Detected (NOT DETECT); Cyclospora Cayetanensis Not Detected (NOT DETECT); Entamoeba Histolytica Not Detected (NOT DETECT); Giardia Lamblia Not Detected (NOT DETECT); Norovirus GI/GII Not Detected (NOT DETECT); Rotavirus A Not Detected (NOT DETECT); Sapovirus Not Detected (NOT DETECT); Shigella/Enteroin E. coli-EIEC Not Detected (NOT DETECT)
[2021-08-26 04:58] LABS: BASOPHILS ABSOLUTE AUTO 0.02 K/mm3 (0.00-0.23); BASOPHILS PERCENT AUTO 0 % (0-2); EOSINOPHILS PERCENT AUTO 0 % (0-6); Hematocrit 39.7 % (37.0-53.0); Hemoglobin 13.2 g/dL (13.5-17.5); IMMATURE GRAN ABSOLUTE AUTO 0.05 K/mm3 (0.00-0.10); IMMATURE GRAN PERCENT AUTO 0 % (0-1); LYMPHOCYTES ABSOLUTE AUTO 1.09 K/mm3 (0.84-5.20); LYMPHOCYTES PERCENT AUTO 9 % (21-46); MONOCYTES ABSOLUTE AUTO 1.09 K/mm3 (0.16-1.47); MONOCYTES PERCENT AUTO 9 % (4-13); Mean Corpuscular HGB 29.6 pg (26.0-34.0); Mean Corpuscular HGB Conc 33.2 g/dL (31.5-36.5); Mean Corpuscular Volume 89 fL (80-100); Mean Platelet Volume 8.7 fL (9.1-12.4); NEUTROPHILS ABSOLUTE AUTO 9.75 K/mm3 (1.96-9.15); NEUTROPHILS PERCENT AUTO 81 % (41-73); Platelet Count 316 K/mm3 (150-400); RDW Coefficient Variation 12.7 % (11.7-14.2); RDW Standard Deviation 41.5 fL (35.1-46.3); Red Blood Cell Count 4.46 M/mm3 (4.30-5.90)
[2021-08-26 05:29] LABS: Alanine Aminotransfer (ALT/SGP 27 U/L (12-78); Albumin, Blood 2.8 g/dL (3.4-5.0); Albumin/Globulin Ratio 0.7 (0.8-1.8); Alk Phos 63 U/L (50-136); Anion Gap 5 mmol/L (6-16); Aspartate Aminotrans (AST/SGOT <3 U/L (12-37); Bilirubin, Total 0.3 mg/dL (0.1-1.0); Blood Urea Nitrogen 7 mg/dL (8-24); Bun/Creatinine Ratio 8.5 (12.0-20.0); CO2, Blood 25 mmol/L (21-32); Calcium, Blood 8.6 mg/dL (8.5-10.1); Chloride, Blood 108 mmol/L (98-108); Creatinine, Blood 0.82 mg/dL (0.60-1.20); Globulin, Blood 4.1 g/dL (2.2-4.0); Glomerular Filtration Rate >60 (60-); Glucose, Blood 137 mg/dL (70-99); Potassium, Blood 4.4 mmol/L (3.5-5.5); Sodium, Blood 138 mmol/L (136-145); Total Protein, Blood 6.9 g/dL (6.4-8.2)
--- NOTE | 2021-08-26 06:18 | NUR ---
Patient is alert and oriented x4. Complains of 8/10 abdomen pain from his crohns flare up, PRN pain medication given. Bowel prep started last night and finished this morning for colonoscopy. Patient had several bowel movements all shift. Cdiff sample sent, negative result. Patient has been tolerating clear liquids. No signs of distress. Call light within reach.
--- NOTE | 2021-08-26 12:27 | NUR ---
ARRIVED INTO [facility] ADMISSION TO UNIT STARTED VSS
--- NOTE | 2021-08-26 13:14 | NUR ---
I went to visit the patient in his [facility] inpatient room this patient. Patient was alert and pleasant. Patient is independent, no needs anticipated. Patient may discharge either tomorrow or Sunday. I have scheduled a hospital follow-up with his PCP, Dr. Mart Minor on 08/26/2021 at 04:20PM. Discussed the importance of attending the appointment, instructed to call the office if patient returns to work next week and needs to rescheduled. Patient's fiance to provide transportation upon discharge.
--- NOTE | 2021-08-26 13:38 | NUR ---
08/26/21 1338 Ty Call PATIENT DETERMINED TO BE ASA APPROPRIATE FOR PROPOFOL SEDATION PRIOR TO START OF PROCEDURE BY DR. PHIPPS 3-LEAD EKG REVIEWED WITH PHYSICIAN PRIOR TO START OF PROCEDURE. Patient to ENDO 1History, Chart, Medications and Allergies reviewed before start of procedure. MONITOR INTACT WITH CONTINUOUS PULSE OXIMETRY AND INTERMITTENT BP. O2 VIA N/C INTACT THROUGHOUT SEDATION/PROCEDURE.
--- NOTE | 2021-08-26 15:03 | NUR ---
PATIENT RETURN FROM COLONSCOPY AWKE,ALERT AND ORIENTED. DENIES PAIN.NO ACUTE DISTRESS NOTED.
--- NOTE | 2021-08-26 17:14 | NUR ---
PATIENT IS AWKE,ALERT AND ORIENTED TIMES THREE.DENIES PAIN. PATIENT HAD COLONOSCOPY TODAY, PATIENT IS COMFORTABLE RESTING. PAIN CONTROL. PATIENT IS TOLERATING FULL LIQUID WIITHOUT DIFFICULTY. NO ACUTE DISTRESS NOTED. PATIENT WAS ENCOURAGE TO CALL FOR ASSISTANCE.
--- NOTE | 2021-08-27 05:37 | NUR ---
Patient is resting in bed. Patient questioned why he was on the zorfran, this rn provided education about the effects of zofran with his diagnosis. patient refused the 0000/0400 doses of zofran but agreed to take the morning 0800 dose. No acute changes overnight, patient is independent in the room and understands rules to [place]. Patient call light is at the bedside.
--- NOTE | 2021-08-27 07:58 | NUR ---
RN recvd handoff of patient care from RENATA Fitzgerald Patient was in bed resting, requested pain med and in no distress
--- NOTE | 2021-08-27 15:18 | NUR ---
Patient was alert and orient. He was able to express his needs by using call light. His affect was bright and mood was cogruent. He was compliant with taking medications, had c/o pain and did recv Dilaudid prn and Percocet prn alternatively. He was continent of bowel and bladder and had not had a BM this shift. He was on RA and 02 sats were 97%. He had no further requests
[2021-08-28 05:01] LABS: BASOPHILS ABSOLUTE AUTO 0.03 K/mm3 (0.00-0.23); BASOPHILS PERCENT AUTO 0 % (0-2); EOSINOPHILS ABSOLUTE AUTO 0.18 K/mm3 (0.00-0.68); EOSINOPHILS PERCENT AUTO 1 % (0-6); Hematocrit 40.1 % (37.0-53.0); Hemoglobin 13.1 g/dL (13.5-17.5); IMMATURE GRAN PERCENT AUTO 2 % (0-1); LYMPHOCYTES ABSOLUTE AUTO 1.73 K/mm3 (0.84-5.20); LYMPHOCYTES PERCENT AUTO 14 % (21-46); MONOCYTES ABSOLUTE AUTO 1.27 K/mm3 (0.16-1.47); MONOCYTES PERCENT AUTO 10 % (4-13); Mean Corpuscular HGB 29.6 pg (26.0-34.0); Mean Corpuscular HGB Conc 32.7 g/dL (31.5-36.5); Mean Corpuscular Volume 91 fL (80-100); Mean Platelet Volume 9.1 fL (9.1-12.4); NEUTROPHILS ABSOLUTE AUTO 9.02 K/mm3 (1.96-9.15); NEUTROPHILS PERCENT AUTO 72 % (41-73); Platelet Count 284 K/mm3 (150-400); RDW Standard Deviation 42.9 fL (35.1-46.3); Red Blood Cell Count 4.42 M/mm3 (4.30-5.90); White Blood Cell Count 12.53 K/mm3 (4.00-11.30)
[2021-08-28 05:24] LABS: Anion Gap 4 mmol/L (6-16); Blood Urea Nitrogen 8 mg/dL (8-24); Bun/Creatinine Ratio 9.9 (12.0-20.0); CO2, Blood 29 mmol/L (21-32); Calcium, Blood 8.7 mg/dL (8.5-10.1); Chloride, Blood 106 mmol/L (98-108); Creatinine, Blood 0.81 mg/dL (0.60-1.20); Glomerular Filtration Rate >60 (60-); Glucose, Blood 124 mg/dL (70-99); Potassium, Blood 4.1 mmol/L (3.5-5.5); Sodium, Blood 139 mmol/L (136-145)
--- NOTE | 2021-08-28 08:00 | NUR ---
pt laying in bed, asking for pain meds, a/ox3, pleasant and coopertive with care, follows commands well, lungs are clear t/o, on r/a, hrr, no edema noted, ppp+2, cap refill <3sec, vs stable, afebrile, iv site is clear and patent, btx4, abd flat soft tender, voids without diff, skin c/w/d, maew, justin, call light in reach.
--- NOTE | 2021-08-28 18:46 | NUR ---
pt has been taking pain meds regularly alternating po with iv, has kept pain down, gave prune juice tonight because of narcotics and possible constipation, no acute changes this shift. call light in reach.
--- NOTE | 2021-08-29 06:22 | NUR ---
Patient alert and oriented x4 ambulatory, complains of abdominal pain. He is timely with his pain medication and insist we write it on the board for the next available time he gets it. 01/15 abdominal pain. Patient had no BM this shift, educated pt about narcotics and can risk of slowing bowel movements. Call light within reach.
--- NOTE | 2021-08-29 08:00 | NUR ---
RENATA fernandes handoff of patient care from RENATA Renee Patient was in bed, alert and awake. Patient fiance was at bedside Patient had no requests at this time
--- NOTE | 2021-08-29 16:58 | NUR ---
Patient was alert and orient, his affect was pleasant and mood was congruent. Patient had a CT of the abdomen today and possibly he may be discharged to home tomorrow. Patient continued to be in pain throughout this shft recvd PRN Dilaudid and Percocet alternatively. But his provider advised to stop the pain medications because he will not be discharged on pain meds. Patient seemed to agree with the provider. Cont to monitor
--- NOTE | 2021-08-30 06:49 | NUR ---
Patient is alert and oriented x4, independent. complains of severe abdominal pain and constipation. PRN pain medication given. educated pt about narcotics and slowing of bowel movement which is contributing to his pain, patients states understanding. No othr signs of distress. call light within reach.
--- NOTE | 2021-08-30 07:08 | NUR ---
RENATA fernandes handoff of patient care from RENATA Renee Patient was lying in bed, not asleep. He appeared to be in no distress
[2021-08-30 10:58] LABS: Hematocrit 45.1 % (37.0-53.0); Hemoglobin 15.1 g/dL (13.5-17.5); Mean Corpuscular HGB 29.7 pg (26.0-34.0); Mean Corpuscular HGB Conc 33.5 g/dL (31.5-36.5); Mean Corpuscular Volume 89 fL (80-100); Mean Platelet Volume 8.9 fL (9.1-12.4); NRBC ABSOLUTE 0.03 K/mm3 (0.00-0.02); NRBC Auto 0.1 /100 WBC (0.0-0.2); Platelet Count 409 K/mm3 (150-400); RDW Coefficient Variation 12.5 % (11.7-14.2); RDW Standard Deviation 40.5 fL (35.1-46.3); Red Blood Cell Count 5.09 M/mm3 (4.30-5.90); White Blood Cell Count 20.54 K/mm3 (4.00-11.30)
[2021-08-30 11:18] LABS: Alanine Aminotransfer (ALT/SGP 46 U/L (12-78); Albumin, Blood 2.9 g/dL (3.4-5.0); Albumin/Globulin Ratio 0.7 (0.8-1.8); Alk Phos 69 U/L (50-136); Anion Gap 9 mmol/L (6-16); Aspartate Aminotrans (AST/SGOT 12 U/L (12-37); Bilirubin, Total 0.3 mg/dL (0.1-1.0); Blood Urea Nitrogen 16 mg/dL (8-24); Bun/Creatinine Ratio 20.2 (12.0-20.0); C-REACTIVE PROTEIN, EXT RANGE 0.501 mg/dL (0.000-0.300); CO2, Blood 28 mmol/L (21-32); Calcium, Blood 8.9 mg/dL (8.5-10.1); Chloride, Blood 100 mmol/L (98-108); Creatinine, Blood 0.79 mg/dL (0.60-1.20); Globulin, Blood 4.1 g/dL (2.2-4.0); Glomerular Filtration Rate >60 (60-); Glucose, Blood 142 mg/dL (70-99); Potassium, Blood 4.3 mmol/L (3.5-5.5); Sodium, Blood 137 mmol/L (136-145)
[2021-08-30 12:02] LABS: BAND PERCENT MAN 5 % (0-8); BASOPHILS PERCENT MAN 0 % (0-2); EOSINOPHILS PERCENT MAN 0 % (0-6); LYMPHOCYTES % ATYPICAL MANUAL 1 % (0-0); LYMPHOCYTES ABSOLUTE MAN 2.05 K/mm3 (0.84-5.20); LYMPHOCYTES PERCENT MAN 9 % (21-46); MONOCYTES ABSOLUTE MAN 2.46 K/mm3 (0.16-1.47); MONOCYTES PERCENT MAN 12 % (4-13); MYELOCYTE ABSOLUTE MAN 0.82 K/mm3 (0.00-0.00); MYELOCYTE PERCENT MAN 4 % (0-0); NEUTROPHILS ABSOLUTE MAN 15.19 K/mm3 (1.96-9.15); SEG NEUTROPHILS PERCENT MAN 69 % (41-73); TOTAL CELLS COUNTED 100
--- NOTE | 2021-08-30 17:44 | NUR ---
Patient was alert and orient, his fiance was at bedside this morning. He was indep with his cares, and he did take a shower. He was continent of bowel and bladder. He was compliant with meds. He complained of pain and did recv PRN Percocet and Dilaudid alternatively. Patient ambulated in his room and in the hallway. Patient will be discharged to home tomorrow. He had no requests at this time.
--- NOTE | 2021-08-31 05:07 | NUR ---
SHIFT SUMMARY: THE PT IS A/OX4. HE USES THE CALL LIGHT APPROPRIATELY. HE IS INDEPENDENT IN THE ROOM. THE PT DID NOT HAVE A BM ON THE NOC SHIFT, BUT IS PASSING GAS. BOWEL TONES ARE ACTIVE AND AUDIBLE. HE DOES HAVE A FEW OPTIONS FOR PRN PAIN MANAGEMENT; Q6 0.5MG OF DILAUDID & Q4 5MG OF OXYCODONE. HE IS A POSSIBLE DC TODAY. WE'LL CONTINUE TO MONITOR.
[2021-08-31 05:38] LABS: Hematocrit 47.4 % (37.0-53.0); Hemoglobin 15.8 g/dL (13.5-17.5); Mean Corpuscular HGB Conc 33.3 g/dL (31.5-36.5); Mean Corpuscular Volume 90 fL (80-100); Mean Platelet Volume 9.1 fL (9.1-12.4); NRBC ABSOLUTE 0.03 K/mm3 (0.00-0.02); NRBC Auto 0.1 /100 WBC (0.0-0.2); Platelet Count 389 K/mm3 (150-400); RDW Coefficient Variation 12.6 % (11.7-14.2); RDW Standard Deviation 41.1 fL (35.1-46.3); Red Blood Cell Count 5.26 M/mm3 (4.30-5.90); White Blood Cell Count 23.04 K/mm3 (4.00-11.30)
[2021-08-31 06:06] LABS: BAND PERCENT MAN 8 % (0-8); BASOPHILS PERCENT MAN 0 % (0-2); EOSINOPHILS PERCENT MAN 0 % (0-6); LYMPHOCYTES ABSOLUTE MAN 2.76 K/mm3 (0.84-5.20); LYMPHOCYTES PERCENT MAN 12 % (21-46); METAMYELOCYTE ABSOLUTE MAN 0.46 K/mm3 (0.00-0.00); METAMYELOCYTE PERCENT MAN 2 % (0-0); MONOCYTES ABSOLUTE MAN 1.84 K/mm3 (0.16-1.47); MONOCYTES PERCENT MAN 8 % (4-13); NEUTROPHILS ABSOLUTE MAN 17.97 K/mm3 (1.96-9.15); SEG NEUTROPHILS PERCENT MAN 70 % (41-73); TOTAL CELLS COUNTED 100
[2021-08-31 06:08] LABS: Alanine Aminotransfer (ALT/SGP 54 U/L (12-78); Albumin, Blood 2.9 g/dL (3.4-5.0); Albumin/Globulin Ratio 0.7 (0.8-1.8); Alk Phos 71 U/L (50-136); Anion Gap 7 mmol/L (6-16); Aspartate Aminotrans (AST/SGOT 17 U/L (12-37); Bilirubin, Total 0.3 mg/dL (0.1-1.0); Blood Urea Nitrogen 19 mg/dL (8-24); Bun/Creatinine Ratio 22.7 (12.0-20.0); C-REACTIVE PROTEIN, EXT RANGE 0.413 mg/dL (0.000-0.300); CO2, Blood 30 mmol/L (21-32); Calcium, Blood 8.9 mg/dL (8.5-10.1); Chloride, Blood 100 mmol/L (98-108); Creatinine, Blood 0.84 mg/dL (0.60-1.20); Globulin, Blood 4.3 g/dL (2.2-4.0); Glomerular Filtration Rate >60 (60-); Glucose, Blood 134 mg/dL (70-99); Magnesium, Blood 2.6 mg/dL (1.6-2.4); Phosphorus, Blood 4.3 mg/dL (2.5-4.9); Potassium, Blood 4.8 mmol/L (3.5-5.5); Sodium, Blood 137 mmol/L (136-145); Total Protein, Blood 7.2 g/dL (6.4-8.2)
--- NOTE | 2021-08-31 07:52 | NUR ---
RN recvd handoff of patient care from RENATA Helton Patient was asleep and appeared to be in no distress
--- NOTE | 2021-08-31 11:05 | NUR ---
Patient was alert and orient x4. Fiance is at bedside. He will be discharged today. He did complain of pain and recvd prn Dilaudid and Percocet alternatively. Patient took a shower yesterday and was indep with all cares. Patient appetite was fair, he was continent of bowel and bladder. He has not had a BM but is having bowel sounds and is now eating solid foods.
--- NOTE | 2021-08-31 11:46 | NUR ---
Per chart review with Dr. Lopez, patient appropriate for discharge home. I scheduled the patient for a hospital follow-up appointment with Dr. Mart Minor on Monday, September 06, 2021 04:20 PM. Went to visit the patient in his room and informed patient of appointment time, and date. Discussed why [place] requests he attend this appointment, to closely follow up in the outpatient setting. Patient agreeable to discharge plan to return home, denies barriers to discharge. No needs anticipated.
[2021-08-31] MEDS ORDERED: BENADRYL25 M1 PO (11:54)
[2021-08-31] MEDS ORDERED: Prednisone10 MG PO (11:56)
--- NOTE | 2021-08-31 13:16 | NUR ---
Patient was discharged and taken off of the unit at 1145am by staff. He was taken down in w/c to meet with his fiance to go home. RN reviewed with patient discharge instructions and medication list. Patient had questions on his medications and pharmacy that he uses. Pharmacist was in to answer his questions and concerns. Patient was appropriate for discharge.
== END 2021-08-31 12:53 | disposition home or self-care (01) | DRG 387 ==
LOC: ER 17:13 → MEDS 17:14
PROVIDERS: Family Medicine; Hospitalist; Internal Medicine; Physician Assistant; Student in an Organized Health Care Education/Training Program; ADMIT Internal Medicine
PROC: 0DBN8ZX Excision of Sigmoid Colon, Via Natural or Artificial Opening Endoscopic, Diagnostic (ICD-10-PCS; 2021-08-25)
PROC: 0DBB8ZX Excision of Ileum, Via Natural or Artificial Opening Endoscopic, Diagnostic (ICD-10-PCS; principal; 2021-08-26 13:00)
DX: K50.812 Crohn's disease of both small and large intestine with intestinal obstruction (principal); Z20.822 Contact with and (suspected) exposure to COVID-19; G47.33 Obstructive sleep apnea (adult) (pediatric); M41.9 Scoliosis, unspecified; Z90.49 Acquired absence of other specified parts of digestive tract; Z90.89 Acquired absence of other organs; Z79.899 Other long term (current) drug therapy; Z87.442 Personal history of urinary calculi
CPT/HCPCS: 0097U; 0241U; 36415; 74177; 76770; 80048; 80053; 83735; 84100; 85025; 86140; 88305; 96372; 96374; 96376; 99285-25; A9270; G0378; J1170; J1650; J2250; J2704; J2920; J7030; J7500; J7512; Q9967

== ENCOUNTER 2021-12-12 16:51 | Inpatient (IN) | payer BC, OTHER ==
[~2021-12-12] VITALS: Ht 182.9 cm; Wt 109.7 kg
[~2021-12-12 16:51] MED LIST changes: +BENADRYL25 M1 PO; +CHOLESTYRAMI239.4 G1 PO; +IRON18 MG PO; +Prednisone10 MG PO
[2021-12-12 17:22] LABS: BASOPHILS ABSOLUTE AUTO 0.04 K/mm3 (0.00-0.23); BASOPHILS PERCENT AUTO 1 % (0-2); EOSINOPHILS ABSOLUTE AUTO 0.05 K/mm3 (0.00-0.68); EOSINOPHILS PERCENT AUTO 1 % (0-6); Hematocrit 42.5 % (37.0-53.0); Hemoglobin 14.3 g/dL (13.5-17.5); IMMATURE GRAN ABSOLUTE AUTO 0.02 K/mm3 (0.00-0.10); IMMATURE GRAN PERCENT AUTO 0 % (0-1); LYMPHOCYTES ABSOLUTE AUTO 1.33 K/mm3 (0.84-5.20); LYMPHOCYTES PERCENT AUTO 16 % (21-46); MONOCYTES ABSOLUTE AUTO 1.28 K/mm3 (0.16-1.47); MONOCYTES PERCENT AUTO 15 % (4-13); Mean Corpuscular HGB 29.7 pg (26.0-34.0); Mean Corpuscular HGB Conc 33.6 g/dL (31.5-36.5); Mean Corpuscular Volume 88 fL (80-100); Mean Platelet Volume 8.7 fL (9.1-12.4); NEUTROPHILS PERCENT AUTO 68 % (41-73); Platelet Count 398 K/mm3 (150-400); RDW Coefficient Variation 12.2 % (11.7-14.2); RDW Standard Deviation 40.1 fL (35.1-46.3); Red Blood Cell Count 4.81 M/mm3 (4.30-5.90); White Blood Cell Count 8.42 K/mm3 (4.00-11.30)
[2021-12-12 17:39] LABS: Albumin, Blood 3.2 g/dL (3.4-5.0); Albumin/Globulin Ratio 0.7 (0.8-1.8); Bilirubin, Total 0.4 mg/dL (0.1-1.0); Bun/Creatinine Ratio 11.4 (12.0-20.0); Calcium, Blood 8.7 mg/dL (8.5-10.1); Creatinine, Blood 0.79 mg/dL (0.60-1.20); Globulin, Blood 4.6 g/dL (2.2-4.0); Potassium, Blood 3.5 mmol/L (3.5-5.5); Total Protein, Blood 7.8 g/dL (6.4-8.2)
[2021-12-12] MEDS ORDERED: CYCL10 PO (22:10)
[2021-12-12] MEDS ORDERED: DIPH25 PO (22:11)
[2021-12-12] MEDS ORDERED: Percocet 5-3251 EACH PO (22:11)
[2021-12-13 04:53] LABS: BASOPHILS ABSOLUTE AUTO 0.02 K/mm3 (0.00-0.23); BASOPHILS PERCENT AUTO 0 % (0-2); EOSINOPHILS ABSOLUTE AUTO 0.11 K/mm3 (0.00-0.68); EOSINOPHILS PERCENT AUTO 2 % (0-6); Hematocrit 35.7 % (37.0-53.0); Hemoglobin 11.8 g/dL (13.5-17.5); IMMATURE GRAN ABSOLUTE AUTO 0.02 K/mm3 (0.00-0.10); IMMATURE GRAN PERCENT AUTO 0 % (0-1); LYMPHOCYTES ABSOLUTE AUTO 1.65 K/mm3 (0.84-5.20); LYMPHOCYTES PERCENT AUTO 26 % (21-46); MONOCYTES PERCENT AUTO 21 % (4-13); Mean Corpuscular HGB 29.9 pg (26.0-34.0); Mean Corpuscular HGB Conc 33.1 g/dL (31.5-36.5); Mean Corpuscular Volume 90 fL (80-100); Mean Platelet Volume 8.7 fL (9.1-12.4); NEUTROPHILS ABSOLUTE AUTO 3.24 K/mm3 (1.96-9.15); NEUTROPHILS PERCENT AUTO 51 % (41-73); Platelet Count 292 K/mm3 (150-400); RDW Coefficient Variation 12.3 % (11.7-14.2); RDW Standard Deviation 40.7 fL (35.1-46.3); Red Blood Cell Count 3.95 M/mm3 (4.30-5.90); White Blood Cell Count 6.34 K/mm3 (4.00-11.30)
[2021-12-13 05:10] LABS: Bun/Creatinine Ratio 13.6 (12.0-20.0); Creatinine, Blood 0.81 mg/dL (0.60-1.20); Potassium, Blood 3.3 mmol/L (3.5-5.5)
--- NOTE | 2021-12-13 05:51 | NUR ---
PT ADMIT THIS SHIFT TO ROOM 359 FROM ER, IND STEADY GAIT; MEDICATED FOR ABD PAIN. GI PANEL PENDING (AWAITING) SAMPLE, CONTACT ISOLATION.
--- NOTE | 2021-12-13 17:03 | NUR ---
SHIFT SUMMARY PT A&O, FOLLOWS COMMANDS, PLEASANT. PT REMAINS NPO. NO NAUSEA, VOMITING, PASSING FLATUS, NO BM. STILL PENDING GI PANEL. IV FLUIDS INFUSING. PT C/O ABD PAIN THROUGHOUT DAY, MEDICATED WITH PRN MEDICATIONS. NO ACUTE CHANGES DURING SHIFT.
--- NOTE | 2021-12-13 18:03 | NUR ---
THIS DEMAND GENERATION MANAGER HAS REVIEWED RENATA CHAPA'S NOTES AND ASSESSMENTS AND AGREES WITH THEM.
--- NOTE | 2021-12-13 23:46 | NUR ---
ISOLATION DISCONTINUED PER HOSPITALIST ORDER, ISOLATION IS DC'D THERE HAS BEEN NO BM FOR OVER 24 HOURS.
--- NOTE | 2021-12-14 03:47 | NUR ---
SHIFT SUMMARY ADMITTED FOR PARTIAL SBO. FULL CODE. PLAN IS TO ADVANCE DIET WHEN GI CONSULT APPROVES, DC HOME W/FAMILY WHEN READY FOR DC. IV SOLUMEDROL IS SCHEDULED. LR INFUSING @ 100 ML/HR. PT IS NPO. C DIFF IS RULED OUT NO BM RECORDED SINCE ADMIT. PT DENIES NAUSEA. AWAITING MORNING LABS. PAIN MEDICATION GIVEN THIS SHIFT FOR LOWER ABDOMINAL PAIN, SEE EMAR.
[2021-12-14 05:01] LABS: BASOPHILS ABSOLUTE AUTO 0.01 K/mm3 (0.00-0.23); BASOPHILS PERCENT AUTO 0 % (0-2); EOSINOPHILS PERCENT AUTO 0 % (0-6); Hematocrit 39.2 % (37.0-53.0); Hemoglobin 12.9 g/dL (13.5-17.5); IMMATURE GRAN ABSOLUTE AUTO 0.02 K/mm3 (0.00-0.10); IMMATURE GRAN PERCENT AUTO 0 % (0-1); LYMPHOCYTES ABSOLUTE AUTO 0.88 K/mm3 (0.84-5.20); LYMPHOCYTES PERCENT AUTO 13 % (21-46); MONOCYTES ABSOLUTE AUTO 0.39 K/mm3 (0.16-1.47); MONOCYTES PERCENT AUTO 6 % (4-13); Mean Corpuscular HGB 29.3 pg (26.0-34.0); Mean Corpuscular HGB Conc 32.9 g/dL (31.5-36.5); Mean Corpuscular Volume 89 fL (80-100); Mean Platelet Volume 8.9 fL (9.1-12.4); NEUTROPHILS ABSOLUTE AUTO 5.42 K/mm3 (1.96-9.15); NEUTROPHILS PERCENT AUTO 81 % (41-73); Platelet Count 329 K/mm3 (150-400); RDW Coefficient Variation 11.9 % (11.7-14.2); White Blood Cell Count 6.72 K/mm3 (4.00-11.30)
[2021-12-14 05:20] LABS: Albumin, Blood 2.6 g/dL (3.4-5.0); Albumin/Globulin Ratio 0.6 (0.8-1.8); Bilirubin, Total 0.6 mg/dL (0.1-1.0); Bun/Creatinine Ratio 13.5 (12.0-20.0); Calcium, Blood 8.8 mg/dL (8.5-10.1); Creatinine, Blood 0.67 mg/dL (0.60-1.20); Potassium, Blood 4.4 mmol/L (3.5-5.5); Total Protein, Blood 6.6 g/dL (6.4-8.2)
--- NOTE | 2021-12-14 18:19 | NUR ---
PT IS A/OX4, PLEASANT AND COOPERATIVE. THE PT IS UP IND IN HIS ROOM. THE PT APPEARES TO BE BREATHING EASILY ON RA AT THIS TIME. THE PT CONTINUES TO REPORT ABD PAIN. PT WAS MEDICATED FOR PAIN T/O THE DAY. THE PT REPORTED HAVEING A SMALL BM TODAY. PT DENIED ANY N/V. CALL LIGHT IN REACH. WILL CONTINUE TO MONITOR AND ASSESS FOR CHANGES
--- NOTE | 2021-12-14 20:51 | NUR ---
2036 PT LYING IN BED, REPORTS ABD PAIN, GOT PERCOCET, WILL EVAL FOR EFFECT. NO OTHER APPARENT SIGNS OF DISTRESS. CALL LIGHT IS IN REACH.
--- NOTE | 2021-12-14 23:35 | NUR ---
2200 PT REPORTS PAIN IS NOW A 3/10, NO OTHER APPARENT SIGNS OF DISTRESS. CALL LIGHT IS IN REACH. PT DENIES NEED FOR ANYTHING ELSE AT THIS TIME.
--- NOTE | 2021-12-14 23:36 | NUR ---
PT LYING IN BED, AWAKE, PT REQUESTED AND RECIEVED BENADRYL FOR SLEEP. WILL EVAL FOR EFFECT. NO OTHER APPARENT SIGNS OF DISTRESS. CALL LIGHT IS IN REACH.
[2021-12-15 05:25] LABS: BASOPHILS ABSOLUTE AUTO 0.01 K/mm3 (0.00-0.23); BASOPHILS PERCENT AUTO 0 % (0-2); EOSINOPHILS PERCENT AUTO 0 % (0-6); Hematocrit 37.6 % (37.0-53.0); Hemoglobin 12.4 g/dL (13.5-17.5); IMMATURE GRAN ABSOLUTE AUTO 0.08 K/mm3 (0.00-0.10); IMMATURE GRAN PERCENT AUTO 1 % (0-1); LYMPHOCYTES ABSOLUTE AUTO 0.98 K/mm3 (0.84-5.20); LYMPHOCYTES PERCENT AUTO 12 % (21-46); MONOCYTES ABSOLUTE AUTO 0.89 K/mm3 (0.16-1.47); MONOCYTES PERCENT AUTO 11 % (4-13); Mean Corpuscular HGB 29.5 pg (26.0-34.0); Mean Corpuscular Volume 89 fL (80-100); Mean Platelet Volume 9.1 fL (9.1-12.4); NEUTROPHILS PERCENT AUTO 75 % (41-73); Platelet Count 389 K/mm3 (150-400); RDW Coefficient Variation 12.2 % (11.7-14.2); Red Blood Cell Count 4.21 M/mm3 (4.30-5.90); White Blood Cell Count 7.96 K/mm3 (4.00-11.30)
--- NOTE | 2021-12-15 05:40 | NUR ---
0200 PT LYING IN BED, EYES CLOSED, APPEARS TO BE RESTING. BREATHING IS EVEN, UNLABORED. NO APPARENT SIGNS OF DISTRESS. CALL LIGHT IS IN REACH.
--- NOTE | 2021-12-15 05:41 | NUR ---
PT REQUESTED AND RECIVED PAIN MEDS, WILL EVAL FOR EFFECT. NO OTHER APPARENT SIGNS OF DISTRESS. CALL LIGHT IS IN RECH. NO OTHER CHANGES THIS SHIFT.
--- NOTE | 2021-12-15 05:41 | NUR ---
0400 PT LYING IN BED, EYES CLOSED, APPEARS TO BE RESTING. BREATHING IS EVEN, UNLABORED. NO APPARENT SIGNS OF DISTRESS. CALL LIGHT IS IN REACH.
--- NOTE | 2021-12-15 05:42 | NUR ---
PT IS AAO X 4, ON RA. REPORTS ABD PAIN, GOR PERCOCET X 2.
[2021-12-15 05:54] LABS: Albumin, Blood 2.6 g/dL (3.4-5.0); Albumin/Globulin Ratio 0.7 (0.8-1.8); Bilirubin, Total 0.4 mg/dL (0.1-1.0); Bun/Creatinine Ratio 14.8 (12.0-20.0); Calcium, Blood 8.9 mg/dL (8.5-10.1); Creatinine, Blood 0.75 mg/dL (0.60-1.20); Globulin, Blood 3.9 g/dL (2.2-4.0); Potassium, Blood 4.5 mmol/L (3.5-5.5); Total Protein, Blood 6.5 g/dL (6.4-8.2)
--- NOTE | 2021-12-15 16:26 | NUR ---
SHIFT SUMMARY PATIENT IS ALERT AND ORIENTED X4. PATIENT HAS BEEN PLEASENT AND COOPERATIVE WITH CARE THIS SHIFT. PATIENT IS IND IN ROOM. PATIENT HAS BEEN GETTING PAIN MEDICATION Q4 FOR SBO. PATIENT HAS NOT REPORTED ANY SOB, NAUSEA OR VOMITING THIS SHIFT. BED IN LOCKED AND LOWEST POSITION. CALL LIGHT IN PLACE. WILL MONITOR UNTIL SHIFT CHANGE.
[2021-12-15] MEDS ORDERED: VISBIOME 112.51 EACH PO (16:48)
[2021-12-15] MEDS ORDERED: PRED20 PO (16:49)
--- NOTE | 2021-12-15 17:34 | NUR ---
DISCHARGE SUMMARY PATIENT IS BEING DISCHARGED HOME. SEE PREVIOUS NOTE. PATIENT IS BEING DISCHARGED TO PATIENTS CAR. YARN DYERBalbina SYLVESTERDERRICK IS WHEELING DOWN PATIENT. NO ACUTE EVENTS THIS SHIFT.
== END 2021-12-15 17:30 | disposition home or self-care (01) | DRG 387 ==
LOC: ER 16:51 → MEDS 21:42
PROVIDERS: Internal Medicine; Physician Assistant; ADMIT Family Medicine
DX: K50.012 Crohn's disease of small intestine with intestinal obstruction (principal); E87.6 Hypokalemia; R59.0 Localized enlarged lymph nodes; K21.9 Gastro-esophageal reflux disease without esophagitis; E55.9 Vitamin D deficiency, unspecified; M41.9 Scoliosis, unspecified; G47.33 Obstructive sleep apnea (adult) (pediatric); Z90.49 Acquired absence of other specified parts of digestive tract; Z79.899 Other long term (current) drug therapy; Z90.89 Acquired absence of other organs
CPT/HCPCS: 36415; 74177; 80048; 80053; 83690; 85025; 85651; 86140; 96374-59; 96375; 99285-25; A9270; C9113; J1170; J2405; J2920; J7120; J7500; J7512; Q9967

== ENCOUNTER 2022-04-26 21:45 | Inpatient (IN) | payer BC, OTHER ==
[~2022-04-26] VITALS: Ht 182.9 cm; Wt 116.5 kg
[~2022-04-26 21:45] MED LIST changes: +DIPH25 PO; +VISBIOME 112.51 EACH PO
[2022-04-26 22:29] LABS: BASOPHILS ABSOLUTE AUTO 0.03 K/mm3 (0.00-0.23); BASOPHILS PERCENT AUTO 1 % (0-2); EOSINOPHILS PERCENT AUTO 2 % (0-6); Hematocrit 44.2 % (37.0-53.0); Hemoglobin 15.2 g/dL (13.5-17.5); IMMATURE GRAN PERCENT AUTO 0 % (0-1); LYMPHOCYTES ABSOLUTE AUTO 1.33 K/mm3 (0.84-5.20); LYMPHOCYTES PERCENT AUTO 26 % (21-46); MONOCYTES ABSOLUTE AUTO 0.91 K/mm3 (0.16-1.47); MONOCYTES PERCENT AUTO 18 % (4-13); Mean Corpuscular HGB 30.1 pg (26.0-34.0); Mean Corpuscular HGB Conc 34.4 g/dL (31.5-36.5); Mean Corpuscular Volume 88 fL (80-100); Mean Platelet Volume 8.9 fL (9.1-12.4); NEUTROPHILS ABSOLUTE AUTO 2.83 K/mm3 (1.96-9.15); NEUTROPHILS PERCENT AUTO 54 % (41-73); Platelet Count 323 K/mm3 (150-400); RDW Coefficient Variation 13.1 % (11.7-14.2); RDW Standard Deviation 41.8 fL (35.1-46.3); Red Blood Cell Count 5.05 M/mm3 (4.30-5.90)
[2022-04-26 22:48] LABS: Albumin, Blood 3.1 g/dL (3.4-5.0); Albumin/Globulin Ratio 0.7 (0.8-1.8); Bilirubin, Total 0.5 mg/dL (0.1-1.0); Bun/Creatinine Ratio 10.8 (12.0-20.0); Calcium, Blood 9.3 mg/dL (8.5-10.1); Creatinine, Blood 1.11 mg/dL (0.60-1.20); Globulin, Blood 4.2 g/dL (2.2-4.0); Potassium, Blood 3.8 mmol/L (3.5-5.5); Total Protein, Blood 7.3 g/dL (6.4-8.2)
[2022-04-26 23:14] LABS: Source, Urine Clean Catch
[2022-04-26 23:28] LABS: Bilirubin, Urine Neg (Neg); Blood, Urine Neg (Neg); Glucose Qualitative, Urine Neg (Neg); Ketones, Urine Neg (Neg); Leukocyte Esterase, Urine Neg (Neg); Nitrite, Urine Neg (Neg); Protein, Urine Neg (Neg); Specific Gravity, Urine 1.015 (1.003-1.022); Urobilinogen, Urine NORM (Normal)
[2022-04-26 23:31] LABS: Appearance, Urine Clear (Clear); Color, Urine Yellow (P-Yellow)
[2022-04-27 05:33] LABS: BASOPHILS ABSOLUTE AUTO 0.02 K/mm3 (0.00-0.23); BASOPHILS PERCENT AUTO 1 % (0-2); EOSINOPHILS ABSOLUTE AUTO 0.01 K/mm3 (0.00-0.68); EOSINOPHILS PERCENT AUTO 0 % (0-6); Hematocrit 41.9 % (37.0-53.0); Hemoglobin 13.7 g/dL (13.5-17.5); IMMATURE GRAN ABSOLUTE AUTO 0.02 K/mm3 (0.00-0.10); IMMATURE GRAN PERCENT AUTO 1 % (0-1); LYMPHOCYTES ABSOLUTE AUTO 0.53 K/mm3 (0.84-5.20); LYMPHOCYTES PERCENT AUTO 12 % (21-46); MONOCYTES ABSOLUTE AUTO 0.17 K/mm3 (0.16-1.47); MONOCYTES PERCENT AUTO 4 % (4-13); Mean Corpuscular HGB Conc 32.7 g/dL (31.5-36.5); Mean Corpuscular Volume 89 fL (80-100); Mean Platelet Volume 9.3 fL (9.1-12.4); NEUTROPHILS ABSOLUTE AUTO 3.64 K/mm3 (1.96-9.15); NEUTROPHILS PERCENT AUTO 83 % (41-73); Platelet Count 287 K/mm3 (150-400); RDW Coefficient Variation 13.1 % (11.7-14.2); RDW Standard Deviation 42.4 fL (35.1-46.3); Red Blood Cell Count 4.73 M/mm3 (4.30-5.90); White Blood Cell Count 4.39 K/mm3 (4.00-11.30)
--- NOTE | 2022-04-27 05:48 | NUR ---
PT ADMITED WITH SBO- MEDICATED PT T/O SHIFT FOR RLQ PAIN- PT UP AB JULIET
[2022-04-27 06:07] LABS: Bun/Creatinine Ratio 12.7 (12.0-20.0); Creatinine, Blood 0.79 mg/dL (0.60-1.20); Potassium, Blood 4.1 mmol/L (3.5-5.5)
--- NOTE | 2022-04-27 08:53 | NUR ---
ICE CHIPS OK NS @ [address] SNOW FOR DILAUDID IV 0.5 MG Q4 HOURS PRN FOR PAIN, IV BENADRYL 25 MG AT BEDTIME, OK TO HAVE ICE CHIPS, AND START NS @ 100 ONCE CURRENT FLUIDS ARE COMPLETE. V.O. TO D/C FENTANYL.
--- NOTE | 2022-04-27 17:07 | NUR ---
Shift Summary A/O, pleasant/cooperative. Medicated for 6-710 RLQ abd pain per EMAR with good effect. NS @ 100 continuous. Up ad austen. Calls appropriately. Denies bowel movement or flatulence today.
--- NOTE | 2022-04-28 04:21 | NUR ---
SHIFT SUMMARY PT A&O X 4- NS INFUSING IN R FA, PT MEDICATED FOR PAIN- PT CONTINUES TO BE NPO WITH FEW ICE CHIPS
--- NOTE | 2022-04-28 17:02 | NUR ---
DISCHARGE SUMMARY: PT A&O X4, PLEASANT AND COOPERATIVE. PT HAD COMPLAINTS OF RLQ PAIN, PT MEDICATED PER EMAR PROTOCOL. PT HAD A LARGE HARM STOOL AT THE BEGINNING OF THE SHIFT. PT HAD NO BLOOD, NAUSEA, OR VOMITING. PT ADVANCED TO CLEAR LIQUID DIET AND TOLERATED WELL, NO NAUSEA OR VOMITING. PT HAS NEW ORDERS FOR PERCOCET5-325 Q6HR FOR SEVERE PAIN AND BENADRYL CHANGED TO PRN FROM SCHEDULED 2100, NS 100ML/HR DC'D. PT ADVANCED TO FULL LIQUID DIET AND TORLORATED WELL, NO NAUSEA OR VOMITING. PT HAD CRAMPING PAIN IN RLQ, PT MEDICATED PER EMAR PROTOCOL. PT IN BED WITH CALL LIGHT WITHIN REACH.
--- NOTE | 2022-04-29 04:10 | NUR ---
SHIFT SUMMARY PT TOLERATING ADVANCED FULLS DIET- MEDICATED PT T/O SHIFT FOR RLQ PAIN- PT REPORTS PAIN IS MOVING IN AREA BEING HE IS ABLE TO DRINK FULL LIQUIDS- IV FLUSHES WITHOUT PROBLEMS-
--- NOTE | 2022-04-29 12:56 | NUR ---
DISCHARGE NOTE: PT A&O X4. PT IV REMOVED WITHOUT PAIN OR DIFFICULTY AND CATHETER INTACTED. PT DRESSED AND PACK HIMSELF. PHARMACY CONTACTED ON HALF LIFE OF IV DILUDID 0.5MG GIVEN AT 0817, 2-3 HOURS. PT HASN'T HAD PAIN MEDICATION SINCE 0817, DISCHARGING HOME AND DRIVING HIMSELF. PT HAS NO DELAYED REACTION TIME, NO SLURRED SPEECH, OR DELAYED REACTION. PT ESCORTED TO LOBBY BY SUSAN THOMPSON.
== END 2022-04-29 13:16 | disposition home or self-care (01) | DRG 387 ==
LOC: ER 21:45 → MEDS 21:46
PROVIDERS: Family Medicine; Physician Assistant; ADMIT Internal Medicine
DX: K50.812 Crohn's disease of both small and large intestine with intestinal obstruction (principal); G47.33 Obstructive sleep apnea (adult) (pediatric); K21.9 Gastro-esophageal reflux disease without esophagitis; D50.9 Iron deficiency anemia, unspecified; E55.9 Vitamin D deficiency, unspecified; M41.9 Scoliosis, unspecified; Z87.442 Personal history of urinary calculi; Z90.49 Acquired absence of other specified parts of digestive tract; Z90.89 Acquired absence of other organs; Z98.890 Other specified postprocedural states; Z79.52 Long term (current) use of systemic steroids; Z79.899 Other long term (current) drug therapy
CPT/HCPCS: 36415; 74177; 80048; 80053; 81003; 83690; 85025; 96361; 96374-59; 96375; 99285-25; A9270; J1170; J1200; J1650; J2405; J2920; J3010; J3480; J7030; Q9967

== ENCOUNTER 2022-06-15 15:57 | Emergency (ER) | payer BC, OTHER ==
[~2022-06-15] VITALS: Ht 182.9 cm; Wt 108.9 kg
[2022-06-15 17:23] LABS: BASOPHILS ABSOLUTE AUTO 0.03 K/mm3 (0.00-0.23); BASOPHILS PERCENT AUTO 0 % (0-2); EOSINOPHILS ABSOLUTE AUTO 0.14 K/mm3 (0.00-0.68); EOSINOPHILS PERCENT AUTO 2 % (0-6); Hematocrit 45.5 % (37.0-53.0); Hemoglobin 15.6 g/dL (13.5-17.5); IMMATURE GRAN ABSOLUTE AUTO 0.04 K/mm3 (0.00-0.10); IMMATURE GRAN PERCENT AUTO 0 % (0-1); LYMPHOCYTES ABSOLUTE AUTO 1.77 K/mm3 (0.84-5.20); LYMPHOCYTES PERCENT AUTO 20 % (21-46); MONOCYTES ABSOLUTE AUTO 0.74 K/mm3 (0.16-1.47); MONOCYTES PERCENT AUTO 8 % (4-13); Mean Corpuscular HGB 29.7 pg (26.0-34.0); Mean Corpuscular HGB Conc 34.3 g/dL (31.5-36.5); Mean Corpuscular Volume 87 fL (80-100); Mean Platelet Volume 8.8 fL (9.1-12.4); NEUTROPHILS ABSOLUTE AUTO 6.21 K/mm3 (1.96-9.15); NEUTROPHILS PERCENT AUTO 70 % (41-73); Platelet Count 313 K/mm3 (150-400); RDW Coefficient Variation 13.4 % (11.7-14.2); RDW Standard Deviation 41.5 fL (35.1-46.3); Red Blood Cell Count 5.26 M/mm3 (4.30-5.90); White Blood Cell Count 8.93 K/mm3 (4.00-11.30)
[2022-06-15 17:43] LABS: Albumin, Blood 3.3 g/dL (3.4-5.0); Albumin/Globulin Ratio 0.9 (0.8-1.8); Bilirubin, Total 0.4 mg/dL (0.1-1.0); Bun/Creatinine Ratio 9.5 (12.0-20.0); Calcium, Blood 8.8 mg/dL (8.5-10.1); Creatinine, Blood 0.84 mg/dL (0.60-1.20); Globulin, Blood 3.7 g/dL (2.2-4.0); Magnesium, Blood 1.8 mg/dL (1.6-2.4); Potassium, Blood 3.6 mmol/L (3.5-5.5)
== END 2022-06-15 23:41 | disposition home or self-care (01) ==
LOC: ER 15:57
PROVIDERS: Physician Assistant
DX: K50.90 Crohn's disease, unspecified, without complications (principal); Z79.899 Other long term (current) drug therapy
CPT/HCPCS: 36415; 74177; 80053; 83735; 85025; J1170; Q9967

== ENCOUNTER 2022-07-18 06:48 | Day surgery (SDC) | payer OTHER ==
[~2022-07-18] VITALS: Ht 182.9 cm; Wt 109.4 kg
== END 2022-07-18 09:04 | disposition home or self-care (01) ==
LOC: ORSCSDS 06:48
PROVIDERS: Internal Medicine Gastroenterology
PROC: 0DDE8ZX Extraction of Large Intestine, Via Natural or Artificial Opening Endoscopic, Diagnostic (ICD-10-PCS; principal; 2022-07-18 08:00)
DX: K52.9 Noninfective gastroenteritis and colitis, unspecified (principal); Z79.899 Other long term (current) drug therapy; D50.0 Iron deficiency anemia secondary to blood loss (chronic)
CPT/HCPCS: 88305; J2250; J2704; J7120

== ENCOUNTER 2022-08-11 14:04 | Inpatient (IN) | payer OTHER ==
[~2022-08-11] VITALS: Ht 185.4 cm; Wt 110.2 kg
[2022-08-11 14:33] LABS: BASOPHILS ABSOLUTE AUTO 0.04 K/mm3 (0.00-0.23); BASOPHILS PERCENT AUTO 1 % (0-2); EOSINOPHILS ABSOLUTE AUTO 0.09 K/mm3 (0.00-0.68); EOSINOPHILS PERCENT AUTO 1 % (0-6); Hematocrit 44.3 % (37.0-53.0); Hemoglobin 15.5 g/dL (13.5-17.5); IMMATURE GRAN ABSOLUTE AUTO 0.03 K/mm3 (0.00-0.10); IMMATURE GRAN PERCENT AUTO 0 % (0-1); LYMPHOCYTES ABSOLUTE AUTO 1.56 K/mm3 (0.84-5.20); LYMPHOCYTES PERCENT AUTO 21 % (21-46); MONOCYTES ABSOLUTE AUTO 0.64 K/mm3 (0.16-1.47); MONOCYTES PERCENT AUTO 9 % (4-13); Mean Corpuscular HGB 30.6 pg (26.0-34.0); Mean Corpuscular Volume 87 fL (80-100); NEUTROPHILS ABSOLUTE AUTO 5.19 K/mm3 (1.96-9.15); NEUTROPHILS PERCENT AUTO 69 % (41-73); Platelet Count 311 K/mm3 (150-400); RDW Coefficient Variation 12.9 % (11.7-14.2); RDW Standard Deviation 41.3 fL (35.1-46.3); Red Blood Cell Count 5.07 M/mm3 (4.30-5.90); White Blood Cell Count 7.55 K/mm3 (4.00-11.30)
[2022-08-11 14:50] LABS: Albumin, Blood 3.6 g/dL (3.4-5.0); Albumin/Globulin Ratio 1.1 (0.8-1.8); Bilirubin, Total 0.2 mg/dL (0.1-1.0); Bun/Creatinine Ratio 11.2 (12.0-20.0); Calcium, Blood 8.8 mg/dL (8.5-10.1); Creatinine, Blood 0.98 mg/dL (0.60-1.20); Globulin, Blood 3.3 g/dL (2.2-4.0); Potassium, Blood 3.9 mmol/L (3.5-5.5); Total Protein, Blood 6.9 g/dL (6.4-8.2)
[2022-08-12 04:04] LABS: BASOPHILS ABSOLUTE AUTO 0.03 K/mm3 (0.00-0.23); BASOPHILS PERCENT AUTO 1 % (0-2); EOSINOPHILS ABSOLUTE AUTO 0.13 K/mm3 (0.00-0.68); EOSINOPHILS PERCENT AUTO 2 % (0-6); Hematocrit 40.9 % (37.0-53.0); Hemoglobin 14.2 g/dL (13.5-17.5); IMMATURE GRAN ABSOLUTE AUTO 0.02 K/mm3 (0.00-0.10); IMMATURE GRAN PERCENT AUTO 0 % (0-1); LYMPHOCYTES ABSOLUTE AUTO 2.17 K/mm3 (0.84-5.20); LYMPHOCYTES PERCENT AUTO 35 % (21-46); MONOCYTES ABSOLUTE AUTO 0.56 K/mm3 (0.16-1.47); MONOCYTES PERCENT AUTO 9 % (4-13); Mean Corpuscular HGB 30.9 pg (26.0-34.0); Mean Corpuscular HGB Conc 34.7 g/dL (31.5-36.5); Mean Corpuscular Volume 89 fL (80-100); Mean Platelet Volume 8.9 fL (9.1-12.4); NEUTROPHILS ABSOLUTE AUTO 3.28 K/mm3 (1.96-9.15); NEUTROPHILS PERCENT AUTO 53 % (41-73); Platelet Count 270 K/mm3 (150-400); RDW Coefficient Variation 12.8 % (11.7-14.2); Red Blood Cell Count 4.59 M/mm3 (4.30-5.90); White Blood Cell Count 6.19 K/mm3 (4.00-11.30)
[2022-08-12 04:23] LABS: Albumin/Globulin Ratio 0.9 (0.8-1.8); Bilirubin, Total 0.6 mg/dL (0.1-1.0); Bun/Creatinine Ratio 10.3 (12.0-20.0); Calcium, Blood 8.1 mg/dL (8.5-10.1); Creatinine, Blood 0.87 mg/dL (0.60-1.20); Globulin, Blood 3.2 g/dL (2.2-4.0); Magnesium, Blood 1.9 mg/dL (1.6-2.4); Potassium, Blood 3.5 mmol/L (3.5-5.5); Total Protein, Blood 6.2 g/dL (6.4-8.2)
--- NOTE | 2022-08-12 07:44 | NUR ---
Patient reports mild/moderate abdominal pain. Pain controlled with PRN meds. Bowel sounds are active. Patient denies nausea, and no emesis noterd. Voiding well and independent in room.
--- NOTE | 2022-08-12 17:29 | NUR ---
SUMMARY NO ACUTE CHANGES T/O SHIFT. PT INDEPENDENT IN ROOM. TOLERATING SMALL AMOUNTS OF CLEARS PER ORDERS. CALL LIGHT IN REACH.
[2022-08-13 04:04] LABS: BASOPHILS ABSOLUTE AUTO 0.03 K/mm3 (0.00-0.23); BASOPHILS PERCENT AUTO 1 % (0-2); EOSINOPHILS ABSOLUTE AUTO 0.12 K/mm3 (0.00-0.68); EOSINOPHILS PERCENT AUTO 2 % (0-6); Hematocrit 41.7 % (37.0-53.0); Hemoglobin 14.5 g/dL (13.5-17.5); IMMATURE GRAN ABSOLUTE AUTO 0.01 K/mm3 (0.00-0.10); IMMATURE GRAN PERCENT AUTO 0 % (0-1); LYMPHOCYTES ABSOLUTE AUTO 1.89 K/mm3 (0.84-5.20); LYMPHOCYTES PERCENT AUTO 33 % (21-46); MONOCYTES ABSOLUTE AUTO 0.55 K/mm3 (0.16-1.47); MONOCYTES PERCENT AUTO 10 % (4-13); Mean Corpuscular HGB 30.7 pg (26.0-34.0); Mean Corpuscular HGB Conc 34.8 g/dL (31.5-36.5); Mean Corpuscular Volume 88 fL (80-100); Mean Platelet Volume 8.8 fL (9.1-12.4); NEUTROPHILS ABSOLUTE AUTO 3.14 K/mm3 (1.96-9.15); NEUTROPHILS PERCENT AUTO 55 % (41-73); Platelet Count 277 K/mm3 (150-400); RDW Coefficient Variation 12.7 % (11.7-14.2); RDW Standard Deviation 41.2 fL (35.1-46.3); Red Blood Cell Count 4.73 M/mm3 (4.30-5.90); White Blood Cell Count 5.74 K/mm3 (4.00-11.30)
[2022-08-13 04:30] LABS: Bun/Creatinine Ratio 7.2 (12.0-20.0); Calcium, Blood 8.6 mg/dL (8.5-10.1); Creatinine, Blood 0.97 mg/dL (0.60-1.20); Potassium, Blood 3.6 mmol/L (3.5-5.5)
--- NOTE | 2022-08-13 05:14 | NUR ---
SHIFT SUMMARY PT HAS RESTED MOST OF THE NIGHT, MEDICATED X2 FOR PAIN WITH EFFECT. PT TOLERATNG SIPS AND CHIPS. HE REPORTS THAT HE HAS BEEN PASSING GAS, HE ATTEMPTED TO HAVE A BM THIS SHIFT WITHOUT SUCCESS. BOWEL TONES HYPOACTIVE. PT REPORTS SOME MILD NAUSEA THAT HAS RESOLVED ON ITS OWN WIHOUT MEDICATION. IVF INFUSING. PT HAS BEEN INDEPENDENT IN THE ROOM. VITALS STABLE. BED IN LOWEST POSITION, CALL LIGHT WITHIN REACH.
--- NOTE | 2022-08-13 19:02 | NUR ---
SHIFT SUMMARY PT HOSPITALIZED FOR SBO. PT HAS CROHN'S AND HX OF MANY SBO'S. PT C/O UPPER ABD PAIN OFTEN AND TREATED PER EMR. PT DID HAVE A BM THIS SHIFT AND C/O INCREASED PAIN FOLLOWING BM. VSS.
--- NOTE | 2022-08-14 05:34 | NUR ---
SHIFT SUMMARY PT A&OX4, PLEASANT AND COOPERATIVE WITH CARE. NO ACUTE CHANGES. MEDICATING FOR PAIN PER EMAR. TOLERATING CLEARS WELL. INDEPENDENT IN ROOM. PT REPORTS PASSING FLATUS. CALLS APPROPRIATELY, CALL LIGHT WITHIN REACH.
--- NOTE | 2022-08-14 17:56 | NUR ---
SHIFT SUMMARY S/P SBO, A/O X4, VSS, TOLERATING PO CLEARS, PER MD HE IS ABLE TO TRIAL A PUDDING LATER THIS EVENING OR TOMORROW TO SEE IF HE IS ABLE TO TOLERATE IT, INDEPENDENT IN HIS ROOM, PLEASANT AND COOPERATIVE WITH NURSING STAFF, ABLE TO MAKE NEEDS KNOWN. NO ACUTE EVENTS TODAY, CALL LIGHT IN REACH, WILL CTM AND REPORT TO ONCOMING NOC RN.
--- NOTE | 2022-08-15 04:49 | NUR ---
VSS. PT SLEPT WELL T/O THE NIGHT. MEDICATED FOR PAIN WITH DILAUDID. NO BM'S NOTED AT THIS TIME. PT VOIDING W/O DIFFICULTY. PLAN FOR PT TO ADVANCE DIET SLOWLY. NO ACUTE EVENTS NOTED T/O THE NIGHT. THE PATIENT IS CURRENTLY SLEEPING, IN NO DISTRESS, CALL LIGHT IN REACH
[2022-08-15 06:18] LABS: BASOPHILS ABSOLUTE AUTO 0.03 K/mm3 (0.00-0.23); BASOPHILS PERCENT AUTO 0 % (0-2); EOSINOPHILS ABSOLUTE AUTO 0.06 K/mm3 (0.00-0.68); EOSINOPHILS PERCENT AUTO 1 % (0-6); Hematocrit 41.3 % (37.0-53.0); Hemoglobin 14.1 g/dL (13.5-17.5); IMMATURE GRAN ABSOLUTE AUTO 0.04 K/mm3 (0.00-0.10); IMMATURE GRAN PERCENT AUTO 0 % (0-1); LYMPHOCYTES ABSOLUTE AUTO 1.92 K/mm3 (0.84-5.20); LYMPHOCYTES PERCENT AUTO 19 % (21-46); MONOCYTES ABSOLUTE AUTO 1.12 K/mm3 (0.16-1.47); MONOCYTES PERCENT AUTO 11 % (4-13); Mean Corpuscular HGB 30.4 pg (26.0-34.0); Mean Corpuscular HGB Conc 34.1 g/dL (31.5-36.5); Mean Corpuscular Volume 89 fL (80-100); Mean Platelet Volume 9.1 fL (9.1-12.4); NEUTROPHILS ABSOLUTE AUTO 6.92 K/mm3 (1.96-9.15); NEUTROPHILS PERCENT AUTO 69 % (41-73); Platelet Count 307 K/mm3 (150-400); RDW Coefficient Variation 12.8 % (11.7-14.2); RDW Standard Deviation 41.4 fL (35.1-46.3); Red Blood Cell Count 4.64 M/mm3 (4.30-5.90); White Blood Cell Count 10.09 K/mm3 (4.00-11.30)
[2022-08-15 06:34] LABS: Albumin/Globulin Ratio 0.8 (0.8-1.8); Bilirubin, Total 0.6 mg/dL (0.1-1.0); Calcium, Blood 8.7 mg/dL (8.5-10.1); Creatinine, Blood 0.83 mg/dL (0.60-1.20); Globulin, Blood 3.6 g/dL (2.2-4.0); Magnesium, Blood 1.9 mg/dL (1.6-2.4); Phosphorus, Blood 3.3 mg/dL (2.5-4.9); Potassium, Blood 3.7 mmol/L (3.5-5.5); Total Protein, Blood 6.6 g/dL (6.4-8.2)
--- NOTE | 2022-08-15 10:58 | NUR ---
Pt. is awake in bed and welcomes my visit. Pt. is pleasant and rapport is quickly established. Pt. displays evidence of being very aware of his condition, and verbalizes the challenge of having crohnes disease. Listen with empathy and a calming presence. Facilitate a life review and identify common relational connections with with the Pt. Pt. displays evidence of engagement and trust. Prayed with Pt. Pt. verbalized gratitude for the spiritual care visit, and welcomed this storm window installer to return.
--- NOTE | 2022-08-15 19:26 | NUR ---
SHIFT SUMMARY S/P SBO, A/OX4, VSS, TOLERATING PO, DIET ADVANCING WITH A TRIAL OF REGULAR DIET FOR DINNER, MULTIPLE BM'S THIS SHIFT, PAIN MANAGED PER EMAR. NO ACUTE EVENTS THIS SHIFT, CALL LIGHT IN REACH, REPORT GIVEN TO CATRINA YANEZ.
--- NOTE | 2022-08-16 04:25 | NUR ---
SHIFT SUMMARY NO ACUTE CHANGES. STILL REPORTS INTERMITTENT ABD PAIN AND RECEIVING DILAUDID AND PERCOCET FOR PAIN MANAGEMENT. REPORTS FLATUS AND HAVING LIQUID BMS. INDEP IN ROOM. ESTER FULL LIQ DIET. USES CALL LIGHT APPROPRIATELY.
[2022-08-16 06:12] LABS: Albumin, Blood 2.8 g/dL (3.4-5.0); Anion Gap 5 mmol/L (6-16); Blood Urea Nitrogen 9 mg/dL (8-24); Bun/Creatinine Ratio 10.5 (12.0-20.0); CO2, Blood 26 mmol/L (21-32); Calcium, Blood 8.7 mg/dL (8.5-10.1); Chloride, Blood 108 mmol/L (98-108); Creatinine, Blood 0.86 mg/dL (0.60-1.20); Glomerular Filtration Rate 116 (60-); Glucose, Blood 112 mg/dL (70-99); Phosphorus, Blood 3.9 mg/dL (2.5-4.9); Potassium, Blood 3.8 mmol/L (3.5-5.5); Sodium, Blood 139 mmol/L (136-145)
--- NOTE | 2022-08-16 16:49 | NUR ---
SHIFT SUMMARY PT A&OX4 AND IN PLEASENT MOOD T/O SHIFT. TOLERATING PO INTAKE-PT C/O INCREASED PAIN AFTER ORAL INTAKE, REQUESTS [facility] SOFT OR SOFT DIET VS REG DIET DR. HEATON NOTIFIED. PAIN MEDICATED PER EMAR. VSS, SLIGHT HYPOTENSION NOTED PT STATES IS NORMAL. AMB W/ STEADY GAIT. BOWEL TONES PRESENT. VOIDING WELL. CALL LIGHT W/IN REACH.
--- NOTE | 2022-08-17 06:18 | NUR ---
Patient slept well overnight. As needed pain meds administered. x1 dilaudid and x1 percocet. Patient tolerated dinner well. Voiding well. Bowel sounds present. Mild abdominal tenderness to touch. No questions or concerns at this time.
--- NOTE | 2022-08-17 10:52 | NUR ---
Spiritual Care - Nurse request Pt. is awake in bed and welcomes my visit. Pt. had just seen Dr. Booth who was processing D/C orders. Pt. is pleasant and displays confidence in his ability to manage his health at home. Re-established rapport, and prayed with Pt. Pt. verbalized graitutde for the spiritual care visit.
[2022-08-17] MEDS ORDERED: MELATONIN5 M1 PO (12:11)
[2022-08-17] MEDS ORDERED: FAMO20 PO (12:11)
[2022-08-17] MEDS ORDERED: Prednisone10 MG PO (12:13)
--- NOTE | 2022-08-17 13:16 | NUR ---
DISCHARGE SUMMARY PT A&OX4, VSS/RA, ESTER PO, VOIDING WELL, AMB INDEPENDENT IN ROOM, PAIN TREATED WITH PO PERC PER EMAR, PT DECLINED ANY ADDITIONAL DOSES, IV DC'D. DC INS PROVIDED. PT REP UNDERSTANDING THOSE INSTRUCTIONS INCLUDING FU WITH PCP AND GI DR (REP HAVING APPT ALREADY SCHEDULED), MEDS CHANGES AND ADDITIONS(FAXED TO [facility] AT [facility]). PT LEFT FLOOR WITH FIANCEE, WITH DC PACKET AND NARC SCRIPT, TO GO HOME WITH ALL PERSONAL POSSESSIONS.
== END 2022-08-17 13:15 | disposition home or self-care (01) | DRG 386 ==
LOC: ER 14:04 → SURS 18:03
PROVIDERS: Emergency Medicine; Family Medicine; Internal Medicine; ADMIT Student in an Organized Health Care Education/Training Program
DX: K50.80 Crohn's disease of both small and large intestine without complications (principal); K56.50 Intestinal adhesions [bands], unspecified as to partial versus complete obstruction; G89.4 Chronic pain syndrome; G47.00 Insomnia, unspecified; F41.9 Anxiety disorder, unspecified; G47.33 Obstructive sleep apnea (adult) (pediatric); D50.9 Iron deficiency anemia, unspecified; M41.9 Scoliosis, unspecified; Z90.49 Acquired absence of other specified parts of digestive tract; Z87.442 Personal history of urinary calculi; Z98.890 Other specified postprocedural states; Z87.891 Personal history of nicotine dependence; Z79.899 Other long term (current) drug therapy; Z79.891 Long term (current) use of opiate analgesic
CPT/HCPCS: 36415; 74177; 80048; 80053; 80069; 82947; 83690; 83735; 84100; 85025; 85651; 86140; 96374-59; 96375; 96376; 99285-25; A9270; J1170; J1200; J1650; J2405; J2920; J7030; J7120; J7512; Q9967

== ENCOUNTER 2022-09-13 16:15 | Inpatient (IN) | payer OTHER ==
[~2022-09-13] VITALS: Ht 182.9 cm; Wt 111.3 kg
[~2022-09-13 16:15] MED LIST changes: +FAMO20 PO; -HUMIRA PEN40 MG/0.2 SC; +HUMIRA(CF)40 MG/0.4 SC; +MELATONIN10 M3 PO
[2022-09-13 17:00] LABS: BASOPHILS ABSOLUTE AUTO 0.04 K/mm3 (0.00-0.23); BASOPHILS PERCENT AUTO 0 % (0-2); EOSINOPHILS ABSOLUTE AUTO 0.12 K/mm3 (0.00-0.68); EOSINOPHILS PERCENT AUTO 1 % (0-6); Hematocrit 46.9 % (37.0-53.0); Hemoglobin 16.3 g/dL (13.5-17.5); IMMATURE GRAN ABSOLUTE AUTO 0.03 K/mm3 (0.00-0.10); IMMATURE GRAN PERCENT AUTO 0 % (0-1); LYMPHOCYTES ABSOLUTE AUTO 2.02 K/mm3 (0.84-5.20); LYMPHOCYTES PERCENT AUTO 22 % (21-46); MONOCYTES ABSOLUTE AUTO 0.88 K/mm3 (0.16-1.47); MONOCYTES PERCENT AUTO 10 % (4-13); Mean Corpuscular HGB 30.8 pg (26.0-34.0); Mean Corpuscular HGB Conc 34.8 g/dL (31.5-36.5); Mean Corpuscular Volume 89 fL (80-100); Mean Platelet Volume 8.7 fL (9.1-12.4); NEUTROPHILS ABSOLUTE AUTO 6.08 K/mm3 (1.96-9.15); NEUTROPHILS PERCENT AUTO 66 % (41-73); Platelet Count 311 K/mm3 (150-400); RDW Coefficient Variation 12.7 % (11.7-14.2); RDW Standard Deviation 41.3 fL (35.1-46.3); Red Blood Cell Count 5.29 M/mm3 (4.30-5.90); White Blood Cell Count 9.17 K/mm3 (4.00-11.30)
[2022-09-13 17:20] LABS: Albumin, Blood 3.8 g/dL (3.4-5.0); Bilirubin, Total 0.3 mg/dL (0.1-1.0); Bun/Creatinine Ratio 13.4 (12.0-20.0); Creatinine, Blood 0.82 mg/dL (0.60-1.20); Globulin, Blood 3.7 g/dL (2.2-4.0); Potassium, Blood 4.2 mmol/L (3.5-5.5); Total Protein, Blood 7.5 g/dL (6.4-8.2)
[2022-09-14 05:36] LABS: BASOPHILS ABSOLUTE AUTO 0.04 K/mm3 (0.00-0.23); BASOPHILS PERCENT AUTO 0 % (0-2); EOSINOPHILS ABSOLUTE AUTO 0.05 K/mm3 (0.00-0.68); EOSINOPHILS PERCENT AUTO 1 % (0-6); Hematocrit 41.9 % (37.0-53.0); Hemoglobin 14.5 g/dL (13.5-17.5); IMMATURE GRAN ABSOLUTE AUTO 0.05 K/mm3 (0.00-0.10); IMMATURE GRAN PERCENT AUTO 1 % (0-1); LYMPHOCYTES PERCENT AUTO 23 % (21-46); MONOCYTES ABSOLUTE AUTO 0.93 K/mm3 (0.16-1.47); MONOCYTES PERCENT AUTO 10 % (4-13); Mean Corpuscular HGB 31.1 pg (26.0-34.0); Mean Corpuscular HGB Conc 34.6 g/dL (31.5-36.5); Mean Corpuscular Volume 90 fL (80-100); Mean Platelet Volume 8.9 fL (9.1-12.4); NEUTROPHILS ABSOLUTE AUTO 6.46 K/mm3 (1.96-9.15); NEUTROPHILS PERCENT AUTO 66 % (41-73); Platelet Count 269 K/mm3 (150-400); RDW Coefficient Variation 13.1 % (11.7-14.2); RDW Standard Deviation 42.7 fL (35.1-46.3); Red Blood Cell Count 4.66 M/mm3 (4.30-5.90); White Blood Cell Count 9.73 K/mm3 (4.00-11.30)
--- NOTE | 2022-09-14 06:00 | NUR ---
END OF SHIFT NURSING REPORT - PM Mr. Blankenship is a 37yo male admitted for partial small bowel obstruction. He has PMH of Crohn's disease on Humira, bowel resection in 2015 and several episodes of SBO complain to the ED with abdominal pain for the past week. He is AOX4, on room air and ambulates with a cane. Complains of pain 8/10 to the epigastric area and mild nausea. Medicated with prn Zofran and hydromorphone IV as ordered. No skin issues noted. NPO since midnight.
[2022-09-14 06:01] LABS: Albumin, Blood 3.3 g/dL (3.4-5.0); Bilirubin, Total 0.7 mg/dL (0.1-1.0); Bun/Creatinine Ratio 12.9 (12.0-20.0); Calcium, Blood 8.6 mg/dL (8.5-10.1); Creatinine, Blood 0.85 mg/dL (0.60-1.20); Globulin, Blood 3.4 g/dL (2.2-4.0); Total Protein, Blood 6.7 g/dL (6.4-8.2)
--- NOTE | 2022-09-14 17:33 | NUR ---
"Spiritual Care | Pt. Request Pt. is awake in bed and welcomes my visit. Pt. is genrally pleasant, but is unsettled by his fiance's leukemia diagnosis earlier in the day. Listen with empathy and a calming presence. Pt. displays evidence of being optimistic. Consider issues of hugo and belief. Pt. displays a solid understanding and hope for recovery from his SBO. Prayed with Pt. Pt. verbalized gratitude for the spiritual care visit. Will remain avilable to the Pt."
--- NOTE | 2022-09-14 17:52 | NUR ---
EVENING NOTE PT UP WALKING IN REDD WITH IVP. LR INFUSING. URINE LIGHTENING. DR SCHMITT SAW PT. CLEAR LIQUIDS OK BUT VERY VERY SMALL AMOUNTS. DR SCHMITT IS FINE WITH STARTING STEROIDS TOMORROW. POWER GLIDE PLACED WITH PT AGREEMENT. MEDICATED FOR R/LUQ PAIN. DILAUDID 1MG IV EFFECTIVE. ZOFRAN X1. NO BM BUT PASSING FLATUS. PT WELL VERSED IN THE EXPECTED TRAJECTORY OF HIS HEALING. CONTINUE POC.
--- NOTE | 2022-09-15 06:07 | NUR ---
END OF SHIFT NURSING REPORT - PM Mr. Blankenship is a 37yo male admitted for partial small bowel obstruction. He has PMH of Crohn's disease on Humira, bowel resection in 2015 and several episodes of SBO complain to the ED with abdominal pain for the past week. He is AOX4, on room air and ambulates with a cane. Complains of pain 8/10 to the epigastric area and mild nausea. Medicated with prn Zofran and hydromorphone IV as ordered. No skin issues noted. ON Clear diet. No surgical recommendations, treatment for Crohn's disease flare -up in place.
--- NOTE | 2022-09-15 16:15 | NUR ---
SHIFT SUMMARY PT AWAKE DURING SHIFT REPORT. A&O, PLEASANT AND CO-OP. UP INDEPENDENTLY IN RM AND TO BTHRM, USING URINAL. NO BM TO PRESENT YET. PT REPORTED PASSING FLATUS. DR SNOW IN TO SEE PT EARLY. NO NEW ORDERS. PT MEDICATED PER EMAR NEEDED FOR C/O ABD PAIN. PT REPORTING PAIN MEDICATION KEEPING PAIN AT BAY AND TOLERABLE. PT DENIES ANY ACUTE DISTRESS. TOLERATING CL DIET. DRINKING FLUIDS WELL. PT NOW SL. TO GO FOR WALK IN HALLS WHEN S/O ARRIVES FOR VISIT. DENIES FURTHER NEEDS AT THIS TIME. CALL LT IN REACH.
[2022-09-16] MEDS ORDERED: TYLENOL325 MG PO (00:21)
--- NOTE | 2022-09-16 18:26 | NUR ---
SHIFT SUMMARY PTN REPORTS LESS PAIN TODAY, MEDICATED PER EMAR. PTN UP AND WALKING THE HALLS WITH CANE. DIET INCREASED TO FULL LIQUIDS TO SEE HOW HE TOLERATES. NO BOWEL MOVEMENT, REPORTS GAS. CONTINUE TO MONITOR.
[2022-09-17 04:41] LABS: BASOPHILS ABSOLUTE AUTO 0.01 K/mm3 (0.00-0.23); BASOPHILS PERCENT AUTO 0 % (0-2); EOSINOPHILS PERCENT AUTO 0 % (0-6); Hematocrit 42.5 % (37.0-53.0); Hemoglobin 14.3 g/dL (13.5-17.5); IMMATURE GRAN ABSOLUTE AUTO 0.09 K/mm3 (0.00-0.10); IMMATURE GRAN PERCENT AUTO 1 % (0-1); LYMPHOCYTES ABSOLUTE AUTO 1.25 K/mm3 (0.84-5.20); LYMPHOCYTES PERCENT AUTO 11 % (21-46); MONOCYTES ABSOLUTE AUTO 0.41 K/mm3 (0.16-1.47); MONOCYTES PERCENT AUTO 4 % (4-13); Mean Corpuscular HGB 31.3 pg (26.0-34.0); Mean Corpuscular HGB Conc 33.6 g/dL (31.5-36.5); Mean Corpuscular Volume 93 fL (80-100); NEUTROPHILS PERCENT AUTO 85 % (41-73); Platelet Count 281 K/mm3 (150-400); RDW Coefficient Variation 12.9 % (11.7-14.2); RDW Standard Deviation 43.8 fL (35.1-46.3); Red Blood Cell Count 4.57 M/mm3 (4.30-5.90); White Blood Cell Count 11.66 K/mm3 (4.00-11.30)
[2022-09-17 05:11] LABS: Albumin, Blood 3.6 g/dL (3.4-5.0); Bilirubin, Total 0.4 mg/dL (0.1-1.0); Bun/Creatinine Ratio 10.8 (12.0-20.0); Calcium, Blood 8.6 mg/dL (8.5-10.1); Creatinine, Blood 0.93 mg/dL (0.60-1.20); Globulin, Blood 3.7 g/dL (2.2-4.0); Potassium, Blood 4.1 mmol/L (3.5-5.5); Total Protein, Blood 7.3 g/dL (6.4-8.2)
--- NOTE | 2022-09-17 06:00 | NUR ---
END OF SHIFT NURSING REPORT - PM Mr. Blankenship is a 37yo male admitted for partial small bowel obstruction. He has PMH of Crohn's disease on Humira, bowel resection in 2015 and several episodes of SBO complain to the ED with abdominal pain for the past week. He is AOX4, on room air and ambulates with a cane. Complains of pain 9/10 to the epigastric area and mild nausea. Medicated with hydromorphone IV x2 and Percocet X2. No skin issues noted. Advanced to full liquid and tolerating diet. Had a large bowel movement, loose and green.
--- NOTE | 2022-09-17 19:23 | NUR ---
SHIFT SUMMARY PTN CONTINUED TO HAVE PAIN FROM 4 TO 8-9 OUT OF 10 ABD, MEDICATED PER EMAR. NO ACUTE EVENTS OR CHANGES THIS SHIFT. CONTINUE TO MONITOR.
[2022-09-18 04:57] LABS: BASOPHILS ABSOLUTE AUTO 0.01 K/mm3 (0.00-0.23); BASOPHILS PERCENT AUTO 0 % (0-2); EOSINOPHILS PERCENT AUTO 0 % (0-6); Hematocrit 39.8 % (37.0-53.0); Hemoglobin 13.2 g/dL (13.5-17.5); IMMATURE GRAN ABSOLUTE AUTO 0.18 K/mm3 (0.00-0.10); IMMATURE GRAN PERCENT AUTO 1 % (0-1); LYMPHOCYTES ABSOLUTE AUTO 1.44 K/mm3 (0.84-5.20); LYMPHOCYTES PERCENT AUTO 9 % (21-46); MONOCYTES ABSOLUTE AUTO 0.88 K/mm3 (0.16-1.47); MONOCYTES PERCENT AUTO 6 % (4-13); Mean Corpuscular HGB 30.8 pg (26.0-34.0); Mean Corpuscular HGB Conc 33.2 g/dL (31.5-36.5); Mean Corpuscular Volume 93 fL (80-100); Mean Platelet Volume 9.4 fL (9.1-12.4); NEUTROPHILS ABSOLUTE AUTO 12.89 K/mm3 (1.96-9.15); NEUTROPHILS PERCENT AUTO 84 % (41-73); Platelet Count 271 K/mm3 (150-400); Red Blood Cell Count 4.29 M/mm3 (4.30-5.90)
[2022-09-18 05:21] LABS: Albumin, Blood 3.2 g/dL (3.4-5.0); Albumin/Globulin Ratio 0.9 (0.8-1.8); Bilirubin, Total 0.4 mg/dL (0.1-1.0); Bun/Creatinine Ratio 13.6 (12.0-20.0); Calcium, Blood 8.8 mg/dL (8.5-10.1); Creatinine, Blood 0.81 mg/dL (0.60-1.20); Globulin, Blood 3.5 g/dL (2.2-4.0); Potassium, Blood 3.9 mmol/L (3.5-5.5); Total Protein, Blood 6.7 g/dL (6.4-8.2)
--- NOTE | 2022-09-18 06:00 | NUR ---
END OF SHIFT NURSING REPORT - PM Mr. Blankenship is a 37yo male admitted for partial small bowel obstruction. He has PMH of Crohn's disease on Humira, bowel resection in 2015 and several episodes of SBO complain to the ED with abdominal pain for the past week. He is AOX4, on room air and ambulates with a cane. Complains of pain 9/10 to the epigastric area and mild nausea. Medicated with hydromorphone IV x2 and Percocet X1. Using heating pad to assist with pain control. Buspar 10mg Po initiated yesterday for anxiety. WBC and blood glucose elevated with IV steroid treatment. No skin issues noted. Advanced to full liquid and tolerating diet. Had a large bowel movement, loose and green yesterday.
--- NOTE | 2022-09-18 09:00 | NUR ---
pt laying in bed watching tv, a/ox3, pleasant and cooperative with care, follows commands well, reports abd pain in the left lower quad, reports it started on the upper left and his normal is the right lower, lungs are clear t/o, resp even and unlabored, no cough noted, hrr, no edema noted, ppp+2, cap refill <3sec, vs stable, afebrile, piv site is clear and patent, power glide to lopez is clear and patent, btx4, hyeractive in upper quads and no sounds in lower quads, abd flat soft nontender, reports he usually has freq loose stools, but hasn't had a bm in a few days, voids without diff, skin c/w/d, justin salamanca, call light in reach.
--- NOTE | 2022-09-18 18:09 | NUR ---
pt has been painful today, gets up indep, no acute changes this shift. call light in reach.
[2022-09-19 05:30] LABS: BASOPHILS ABSOLUTE AUTO 0.02 K/mm3 (0.00-0.23); BASOPHILS PERCENT AUTO 0 % (0-2); EOSINOPHILS PERCENT AUTO 0 % (0-6); Hematocrit 41.6 % (37.0-53.0); Hemoglobin 13.9 g/dL (13.5-17.5); IMMATURE GRAN ABSOLUTE AUTO 0.29 K/mm3 (0.00-0.10); IMMATURE GRAN PERCENT AUTO 2 % (0-1); LYMPHOCYTES ABSOLUTE AUTO 1.52 K/mm3 (0.84-5.20); LYMPHOCYTES PERCENT AUTO 12 % (21-46); MONOCYTES ABSOLUTE AUTO 0.88 K/mm3 (0.16-1.47); MONOCYTES PERCENT AUTO 7 % (4-13); Mean Corpuscular HGB 30.8 pg (26.0-34.0); Mean Corpuscular HGB Conc 33.4 g/dL (31.5-36.5); Mean Corpuscular Volume 92 fL (80-100); Mean Platelet Volume 9.5 fL (9.1-12.4); NEUTROPHILS PERCENT AUTO 78 % (41-73); Platelet Count 276 K/mm3 (150-400); RDW Coefficient Variation 12.9 % (11.7-14.2); RDW Standard Deviation 43.6 fL (35.1-46.3); Red Blood Cell Count 4.51 M/mm3 (4.30-5.90); White Blood Cell Count 12.21 K/mm3 (4.00-11.30)
[2022-09-19 06:07] LABS: C-REACTIVE PROTEIN, EXT RANGE 0.326 mg/dL (0.000-0.300)
[2022-09-19 06:08] LABS: Albumin, Blood 3.1 g/dL (3.4-5.0); Albumin/Globulin Ratio 0.9 (0.8-1.8); Bilirubin, Total 0.7 mg/dL (0.1-1.0); Bun/Creatinine Ratio 15.8 (12.0-20.0); Calcium, Blood 8.7 mg/dL (8.5-10.1); Creatinine, Blood 1.01 mg/dL (0.60-1.20); Globulin, Blood 3.5 g/dL (2.2-4.0); Phosphorus, Blood 4.6 mg/dL (2.5-4.9); Potassium, Blood 4.1 mmol/L (3.5-5.5); Total Protein, Blood 6.6 g/dL (6.4-8.2)
--- NOTE | 2022-09-19 18:52 | NUR ---
SHIFT SUMMARY PT A&OX4 AND IN PLEASENT MOOD T/O SHIFT. C/O PAIN MEDICATED PER EMAR. PT DIET CHANGED TO FULL LIQUID PER PT REQUEST-TOLERATING AT THIS TIME. NAUSEA MEDICATED PER EMAR. CALL LIGHT W/IN REACH. RA. RESTING IN BED T/O SHIFT. PT STATES HE WAS ADVISED NOT TO TAKE OMEPRAZOLE-REFUSING ORDERED SCHEDULED MEDS.
--- NOTE | 2022-09-20 16:50 | NUR ---
SHIFT SUMMARY: C/O 7-02/15 PAIN IN ABDOMEN, MOSTLY LLQ; MEDICATED PER EMAR WITH ADEQUATE RELIEF. DIET ADVANCED FROM FULL LIQ TO REGULAR PER PT REQUEST, AND HE IS TOLERATING WELL. ATE 100% OF LUNCH AND HAD HALF SANDWICH BETWEEN LUNCH AND DINNER. TOLERATING PO FLUIDS ALSO WITH MODERATE INCREASE IN ABD PAIN. NO BM TODAY, BUT BS ACTIVE X 4. DRESSING CHANGED ON RAMYA POWERGLIDE IV.
[2022-09-21 05:06] LABS: Hematocrit 43.2 % (37.0-53.0); Hemoglobin 14.7 g/dL (13.5-17.5); Mean Corpuscular HGB 30.8 pg (26.0-34.0); Mean Corpuscular Volume 91 fL (80-100); Mean Platelet Volume 9.2 fL (9.1-12.4); NRBC ABSOLUTE 0.02 K/mm3 (0.00-0.02); NRBC Auto 0.1 /100 WBC (0.0-0.2); Platelet Count 316 K/mm3 (150-400); RDW Coefficient Variation 12.8 % (11.7-14.2); RDW Standard Deviation 42.5 fL (35.1-46.3); Red Blood Cell Count 4.77 M/mm3 (4.30-5.90); White Blood Cell Count 15.84 K/mm3 (4.00-11.30)
--- NOTE | 2022-09-21 05:33 | NUR ---
SHIFT SUMMARY 37 YR M ADMITTED ON 09/13/22 FOR SMALL BOWEL OBSTRUCTION. FULL CODE. NO ACUTE CHANGES THIS SHIFT. PT WAS MEDICATED FOR PAIN W/ EVEING MEDS AND HAS HAD NO C/O PAIN OR DISCOMFORT SINCE THEN. HE APPEARS TO HAVE SLEPT WELL THROUGH THE NIGHT. HE IS PLEASANT AND COOPERATIVE W/ CARE AND IS ABLE TO MAKE HIS NEEDS KNOWN. HE IS INDEPENDANT IN THE ROOM AND MAY DISCHARGE TODAY.
[2022-09-21 06:02] LABS: Albumin, Blood 3.1 g/dL (3.4-5.0); Albumin/Globulin Ratio 0.9 (0.8-1.8); Bilirubin, Total 0.5 mg/dL (0.1-1.0); Bun/Creatinine Ratio 25.1 (12.0-20.0); Calcium, Blood 8.7 mg/dL (8.5-10.1); Creatinine, Blood 0.88 mg/dL (0.60-1.20); Globulin, Blood 3.5 g/dL (2.2-4.0); Total Protein, Blood 6.6 g/dL (6.4-8.2)
[2022-09-21 06:16] LABS: BASOPHILS PERCENT MAN 0 % (0-2); EOSINOPHILS PERCENT MAN 0 % (0-6); LYMPHOCYTES ABSOLUTE MAN 1.58 K/mm3 (0.84-5.20); LYMPHOCYTES PERCENT MAN 10 % (21-46); MONOCYTES ABSOLUTE MAN 1.58 K/mm3 (0.16-1.47); MONOCYTES PERCENT MAN 10 % (4-13); MYELOCYTE ABSOLUTE MAN 0.79 K/mm3 (0.00-0.00); MYELOCYTE PERCENT MAN 5 % (0-0); NEUTROPHILS ABSOLUTE MAN 11.88 K/mm3 (1.96-9.15); SEG NEUTROPHILS PERCENT MAN 75 % (41-73); TOTAL CELLS COUNTED 100
[2022-09-21] MEDS ORDERED: Percocet 10-321 EACH PO (11:35)
[2022-09-21] MEDS ORDERED: Prednisone20 MG PO (11:36)
--- NOTE | 2022-09-21 12:15 | NUR ---
PATIENT DISCHARGED TO HOME ACCOMPANIED BY HIS FIANCE. POWERGLIDE IV REMOVED WITHOUT INCIDENT, NO BLEEDING NOTED. VERBALIZED UNDERSTANDING OF D/C INSTRUCTIONS, HAD NO QUESTIONS. AMBULATED OFF UNIT AT 1212. NO BELONGINGS LEFT BEHIND IN ROOM.
[2022-09-26 19:06] LABS: 25-HYDROXY, VITAMIN D-3 9.8 ng/mL (.)
== END 2022-09-21 12:19 | disposition home or self-care (01) | DRG 387 ==
LOC: ER 16:15 → MEDS 21:15
PROVIDERS: Hospitalist; Internal Medicine; Physician Assistant; Student in an Organized Health Care Education/Training Program; ADMIT Internal Medicine
DX: K50.812 Crohn's disease of both small and large intestine with intestinal obstruction (principal); G89.4 Chronic pain syndrome; F41.9 Anxiety disorder, unspecified; G47.00 Insomnia, unspecified; G47.33 Obstructive sleep apnea (adult) (pediatric); D50.9 Iron deficiency anemia, unspecified; M41.9 Scoliosis, unspecified; Z90.49 Acquired absence of other specified parts of digestive tract; Z98.890 Other specified postprocedural states; Z79.899 Other long term (current) drug therapy; Z79.891 Long term (current) use of opiate analgesic; Z92.25 Personal history of immunosuppression therapy; Z87.442 Personal history of urinary calculi; Z87.891 Personal history of nicotine dependence
CPT/HCPCS: 36415; 74022; 74177; 80053; 82306; 83690; 84100; 85025; 85651; 86140; 96374; 99285-25; A9270; C1751; J1170; J1200; J1650; J1885; J2405; J2920; J7120; Q9967

== ENCOUNTER 2022-10-05 09:01 | Emergency (ER) | payer OTHER ==
[~2022-10-05] VITALS: Ht 182.9 cm; Wt 106.6 kg
[~2022-10-05 09:01] MED LIST changes: +TYLENOL325 MG PO
[2022-10-05] MEDS ORDERED: Robaxin750 MG PO (11:28)
[2022-10-05] MEDS ORDERED: KETO10 PO (11:29)
== END 2022-10-05 11:35 | disposition home or self-care (01) ==
LOC: ER 09:01
DX: M62.830 Muscle spasm of back (principal); Z79.899 Other long term (current) drug therapy
CPT/HCPCS: A9270; J1885; J3360

== ENCOUNTER 2023-02-13 01:49 | Day surgery (SDC) | payer OTHER ==
[~2023-02-13 01:49] MED LIST changes: +Robaxin750 MG PO
[2023-02-13 13:47] VITALS: BP 116/93
[2023-02-13] MEDS ORDERED: INFLECTRA100 MG IV (13:54)
[2023-02-13 14:36] VITALS: BP 119/90
[2023-02-13 14:49] VITALS: BP 121/94
[2023-02-13 15:04] VITALS: BP 115/86
[2023-02-13 15:20] VITALS: BP 113/92
[2023-02-13 15:34] VITALS: BP 123/92
== END 2023-02-13 16:11 | disposition home or self-care (01) ==
LOC: ATC 01:49
DX: K50.812 Crohn's disease of both small and large intestine with intestinal obstruction (principal); K21.9 Gastro-esophageal reflux disease without esophagitis; K50.813 Crohn's disease of both small and large intestine with fistula; K52.9 Noninfective gastroenteritis and colitis, unspecified; D50.0 Iron deficiency anemia secondary to blood loss (chronic); N20.0 Calculus of kidney; Z86.16 Personal history of COVID-19
CPT/HCPCS: 96375; 96413; 96415; A9270; J1720; J7050; Q5103

== ENCOUNTER 2023-02-20 10:28 | Emergency (ER) | payer OTHER ==
[~2023-02-20] VITALS: Ht 182.9 cm; Wt 122.5 kg
[~2023-02-20 10:28] MED LIST changes: +INFLECTRA100 MG IV
[2023-02-20 11:08] LABS: BASOPHILS ABSOLUTE AUTO 0.04 K/mm3 (0.00-0.23); BASOPHILS PERCENT AUTO 1 % (0-2); EOSINOPHILS ABSOLUTE AUTO 0.12 K/mm3 (0.00-0.68); EOSINOPHILS PERCENT AUTO 2 % (0-6); Hematocrit 46.8 % (37.0-53.0); Hemoglobin 16.6 g/dL (13.5-17.5); IMMATURE GRAN ABSOLUTE AUTO 0.03 K/mm3 (0.00-0.10); IMMATURE GRAN PERCENT AUTO 1 % (0-1); LYMPHOCYTES ABSOLUTE AUTO 1.98 K/mm3 (0.84-5.20); LYMPHOCYTES PERCENT AUTO 32 % (21-46); MONOCYTES ABSOLUTE AUTO 0.63 K/mm3 (0.16-1.47); MONOCYTES PERCENT AUTO 10 % (4-13); Mean Corpuscular HGB 31.1 pg (26.0-34.0); Mean Corpuscular HGB Conc 35.5 g/dL (31.5-36.5); Mean Corpuscular Volume 88 fL (80-100); Mean Platelet Volume 9.8 fL (9.1-12.4); NEUTROPHILS ABSOLUTE AUTO 3.34 K/mm3 (1.96-9.15); NEUTROPHILS PERCENT AUTO 54 % (41-73); Platelet Count 271 K/mm3 (150-400); RDW Coefficient Variation 12.2 % (11.7-14.2); RDW Standard Deviation 39.6 fL (35.1-46.3); Red Blood Cell Count 5.34 M/mm3 (4.30-5.90); White Blood Cell Count 6.14 K/mm3 (4.00-11.30)
[2023-02-20 11:26] LABS: Albumin, Blood 3.9 g/dL (3.4-5.0); Albumin/Globulin Ratio 1.1 (0.8-1.8); Bilirubin, Total 0.7 mg/dL (0.1-1.0); Bun/Creatinine Ratio 19.3 (12.0-20.0); Calcium, Blood 8.9 mg/dL (8.5-10.1); Creatinine, Blood 0.83 mg/dL (0.60-1.20); Globulin, Blood 3.6 g/dL (2.2-4.0); Potassium, Blood 4.1 mmol/L (3.5-5.5); Total Protein, Blood 7.5 g/dL (6.4-8.2)
[2023-02-20 12:45] VITALS: BP 124/87
== END 2023-02-20 12:59 | disposition home or self-care (01) ==
LOC: ER 10:28
PROVIDERS: Emergency Medicine
DX: K50.90 Crohn's disease, unspecified, without complications (principal)
CPT/HCPCS: 74177; 80053; 83690; 85025; J1170; J2405; J7030; Q9967

== ENCOUNTER 2023-02-27 02:13 | Day surgery (SDC) | payer OTHER ==
[2023-02-27 13:57] VITALS: BP 130/96
== END 2023-02-27 15:53 | disposition home or self-care (01) ==
LOC: ATC 02:13
DX: K50.812 Crohn's disease of both small and large intestine with intestinal obstruction (principal); K50.813 Crohn's disease of both small and large intestine with fistula; E66.3 Overweight
CPT/HCPCS: 96375; 96413; 96415; A9270; J1720; J7050; Q5103

== ENCOUNTER 2023-03-07 12:59 | Emergency (ER) | payer OTHER ==
[~2023-03-07] VITALS: Ht 182.9 cm; Wt 124.7 kg
[2023-03-07 16:27] LABS: BASOPHILS ABSOLUTE AUTO 0.03 K/mm3 (0.00-0.23); BASOPHILS PERCENT AUTO 0 % (0-2); EOSINOPHILS ABSOLUTE AUTO 0.06 K/mm3 (0.00-0.68); EOSINOPHILS PERCENT AUTO 1 % (0-6); Hematocrit 48.3 % (37.0-53.0); Hemoglobin 16.8 g/dL (13.5-17.5); IMMATURE GRAN ABSOLUTE AUTO 0.04 K/mm3 (0.00-0.10); IMMATURE GRAN PERCENT AUTO 1 % (0-1); LYMPHOCYTES ABSOLUTE AUTO 2.04 K/mm3 (0.84-5.20); LYMPHOCYTES PERCENT AUTO 26 % (21-46); MONOCYTES ABSOLUTE AUTO 0.73 K/mm3 (0.16-1.47); MONOCYTES PERCENT AUTO 10 % (4-13); Mean Corpuscular HGB 30.9 pg (26.0-34.0); Mean Corpuscular HGB Conc 34.8 g/dL (31.5-36.5); Mean Corpuscular Volume 89 fL (80-100); Mean Platelet Volume 9.5 fL (9.1-12.4); NEUTROPHILS ABSOLUTE AUTO 4.82 K/mm3 (1.96-9.15); NEUTROPHILS PERCENT AUTO 62 % (41-73); Platelet Count 276 K/mm3 (150-400); RDW Coefficient Variation 12.3 % (11.7-14.2); RDW Standard Deviation 40.4 fL (35.1-46.3); Red Blood Cell Count 5.43 M/mm3 (4.30-5.90); White Blood Cell Count 7.72 K/mm3 (4.00-11.30)
[2023-03-07 16:59] LABS: Albumin, Blood 4.2 g/dL (3.4-5.0); Albumin/Globulin Ratio 1.1 (0.8-1.8); Bilirubin, Total 0.6 mg/dL (0.1-1.0); Bun/Creatinine Ratio 16.2 (12.0-20.0); Calcium, Blood 9.2 mg/dL (8.5-10.1); Creatinine, Blood 0.74 mg/dL (0.60-1.20); Globulin, Blood 3.7 g/dL (2.2-4.0); Potassium, Blood 4.1 mmol/L (3.5-5.5); Total Protein, Blood 7.9 g/dL (6.4-8.2)
[2023-03-07 17:35] VITALS: BP 108/61
== END 2023-03-07 17:36 | disposition home or self-care (01) ==
LOC: ER 12:59
PROVIDERS: Student in an Organized Health Care Education/Training Program
DX: M54.9 Dorsalgia, unspecified (principal); R10.10 Upper abdominal pain, unspecified; Z79.899 Other long term (current) drug therapy
CPT/HCPCS: 72080; 80053; 83690; 85025; 99284-25; A9270

== ENCOUNTER → 2023-03-14 | Outpatient (CLI) | payer OTHER ==
[2023-03-14 12:00] LABS: Source, Urine Clean Catch
[2023-03-14 13:05] LABS: Appearance, Urine Clear (Clear); Bilirubin, Urine Neg (Neg); Blood, Urine 4+ (Neg); Color, Urine Yellow (P-Yellow); Glucose Qualitative, Urine Neg (Neg); Ketones, Urine Neg (Neg); Leukocyte Esterase, Urine Neg (Neg); Nitrite, Urine Neg (Neg); Protein, Urine Neg (Neg); Urobilinogen, Urine NORM (Normal)
[2023-03-14 13:18] LABS: Mucus Mod (0-Heavy); Squamous Epithelial Cells Few /hpf (Few)
[2023-03-14 13:19] LABS: Amorphous Light (0-Heavy); Bacteria Not Seen /hpf; White Blood Cells, Urine 0-2 /hpf (0-5)
== END ==
LOC: LAB SHORT 10:56 → LAB 10:56
PROVIDERS: Family Medicine
DX: R31.9 Hematuria, unspecified (principal)
CPT/HCPCS: 81001; 87086

== ENCOUNTER 2023-06-19 04:09 | Day surgery (SDC) | payer OTHER ==
[2023-06-19 13:55] VITALS: BP 126/86
--- NOTE | 2023-06-19 17:13 | NUR ---
PT WANTING TO GO TO ER WITH PAIN IN RLQ OF ABDOMEN, STATES IT HAS BEEN GOING ON 3 DAYS. IV LEFT IN L HAND AND REPORTED OFF TO ER MASSAGE COORDINATOR
[2023-06-19] MEDS ORDERED: ONDA4ODT MM (19:19)
== END 2023-06-19 16:28 | disposition home or self-care (01) ==
LOC: ATC 04:09
DX: K50.812 Crohn's disease of both small and large intestine with intestinal obstruction (principal); D50.0 Iron deficiency anemia secondary to blood loss (chronic); Z79.899 Other long term (current) drug therapy; Z86.16 Personal history of COVID-19; R10.31 Right lower quadrant pain; G47.33 Obstructive sleep apnea (adult) (pediatric); Z90.49 Acquired absence of other specified parts of digestive tract
CPT/HCPCS: 74177; 80053; 85025; 96361; 96374; 96375; 96413; 96415; 99284-25; A9270; J1170; J1720; J2405; J7030; J7050; Q5103; Q9967

== ENCOUNTER 2023-08-05 13:50 | Emergency (ER) | payer OTHER ==
[~2023-08-05] VITALS: Ht 182.9 cm; Wt 124.7 kg
[2023-08-05 14:58] LABS: BASOPHILS ABSOLUTE AUTO 0.03 K/mm3 (0.00-0.23); BASOPHILS PERCENT AUTO 1 % (0-2); EOSINOPHILS PERCENT AUTO 2 % (0-6); Hematocrit 46.5 % (37.0-53.0); Hemoglobin 16.6 g/dL (13.5-17.5); IMMATURE GRAN ABSOLUTE AUTO 0.03 K/mm3 (0.00-0.10); IMMATURE GRAN PERCENT AUTO 1 % (0-1); LYMPHOCYTES ABSOLUTE AUTO 1.57 K/mm3 (0.84-5.20); LYMPHOCYTES PERCENT AUTO 27 % (21-46); MONOCYTES ABSOLUTE AUTO 0.62 K/mm3 (0.16-1.47); MONOCYTES PERCENT AUTO 11 % (4-13); Mean Corpuscular HGB 31.6 pg (26.0-34.0); Mean Corpuscular HGB Conc 35.7 g/dL (31.5-36.5); Mean Corpuscular Volume 88 fL (80-100); Mean Platelet Volume 9.8 fL (9.1-12.4); NEUTROPHILS ABSOLUTE AUTO 3.47 K/mm3 (1.96-9.15); NEUTROPHILS PERCENT AUTO 60 % (41-73); Platelet Count 230 K/mm3 (150-400); RDW Coefficient Variation 11.9 % (11.7-14.2); RDW Standard Deviation 38.8 fL (35.1-46.3); Red Blood Cell Count 5.26 M/mm3 (4.30-5.90); White Blood Cell Count 5.82 K/mm3 (4.00-11.30)
[2023-08-05 15:10] LABS: Albumin, Blood 3.7 g/dL (3.4-5.0); Albumin/Globulin Ratio 0.9 (0.8-1.8); Bilirubin, Total 0.5 mg/dL (0.1-1.0); Bun/Creatinine Ratio 17.4 (12.0-20.0); Calcium, Blood 8.8 mg/dL (8.5-10.1); Creatinine, Blood 0.86 mg/dL (0.60-1.20); Globulin, Blood 3.9 g/dL (2.2-4.0); Potassium, Blood 4.3 mmol/L (3.5-5.5); Total Protein, Blood 7.6 g/dL (6.4-8.2)
[2023-08-05 18:30] VITALS: BP 139/88
== END 2023-08-05 19:03 | disposition home or self-care (01) ==
LOC: ER 13:50
PROVIDERS: Physician Assistant
DX: N20.2 Calculus of kidney with calculus of ureter (principal); Z79.899 Other long term (current) drug therapy; G47.33 Obstructive sleep apnea (adult) (pediatric); F17.220 Nicotine dependence, chewing tobacco, uncomplicated
CPT/HCPCS: 74177; 80053; 83690; 85025; 96374; 96375; 96376; 99284-25; A9270; J1170; J2405; J7120; Q9967

== ENCOUNTER 2023-08-14 01:48 | Day surgery (SDC) | payer OTHER ==
[~2023-08-14] VITALS: Wt 126.8 kg
[2023-08-14] MEDS ORDERED: NS IV SCH (06:00)
[2023-08-14] MEDS ORDERED: INFLIXIMAB DYYB IV SCH (06:00)
[2023-08-14] MEDS ORDERED: Acetaminophen 325 MG TABLET PO SCH (07:35)
[2023-08-14] MEDS ORDERED: DiphenhydrAMINE HCL 25 MG Cap PO PRN (07:35)
[2023-08-14] MEDS ORDERED: Hydrocortisone Sod Succinate 100 MG Vial IV SCH (07:35)
[2023-08-14 13:40] VITALS: BP 120/88
== END 2023-08-14 16:55 | disposition home or self-care (01) ==
LOC: ATC 01:48
DX: K50.812 Crohn's disease of both small and large intestine with intestinal obstruction (principal); K21.9 Gastro-esophageal reflux disease without esophagitis; G47.33 Obstructive sleep apnea (adult) (pediatric); M41.9 Scoliosis, unspecified; E55.9 Vitamin D deficiency, unspecified
CPT/HCPCS: 96375; 96413; 96415; A9270; J1720; J7050; Q5103

== ENCOUNTER 2023-10-31 03:24 | Day surgery (SDC) | payer OTHER ==
[2023-10-31] MEDS ORDERED: NS IV SCH (06:00)
[2023-10-31] MEDS ORDERED: INFLIXIMAB DYYB IV SCH (06:00)
[2023-10-31] MEDS ORDERED: Acetaminophen 325 MG TABLET PO PRN (15:40)
[2023-10-31] MEDS ORDERED: DiphenhydrAMINE HCL 25 MG Cap PO PRN (15:40)
[2023-10-31] MEDS ORDERED: Hydrocortisone Sod Succinate 100 MG Vial IV SCH (15:40)
[2023-10-31 15:42] VITALS: BP 113/94
== END 2023-10-31 18:00 | disposition home or self-care (01) ==
LOC: ATC 03:24
DX: K50.812 Crohn's disease of both small and large intestine with intestinal obstruction (principal); Z79.899 Other long term (current) drug therapy
CPT/HCPCS: 96375; 96413; 96415; A9270; J1720; J7050; Q5103

== ENCOUNTER 2024-01-01 00:48 | Day surgery (SDC) | payer OTHER ==
[2024-01-01] MEDS ORDERED: NS IV SCH (06:00)
[2024-01-01] MEDS ORDERED: INFLIXIMAB DYYB IV SCH (06:00)
[2024-01-01] MEDS ORDERED: Hydrocortisone Sod Succinate 100 MG Vial IV SCH (07:25)
[2024-01-01] MEDS ORDERED: Acetaminophen 325 MG TABLET PO SCH (07:25)
[2024-01-01] MEDS ORDERED: DiphenhydrAMINE HCL 25 MG Cap PO SCH (07:25)
[2024-01-01 14:49] LABS: Performing Lab 3150; Test Name ANSER
[2024-01-01 15:34] VITALS: BP 121/82
== END 2024-01-01 17:00 | disposition home or self-care (01) ==
LOC: ATC 00:48
PROVIDERS: Physician Assistant Medical
DX: K50.812 Crohn's disease of both small and large intestine with intestinal obstruction (principal); E55.9 Vitamin D deficiency, unspecified
CPT/HCPCS: 96375; 96413; 96415; A9270; J1720; J7050; Q5103

== ENCOUNTER 2024-01-14 08:28 | Day surgery (SDC) | payer OTHER ==
[~2024-01-14] VITALS: Ht 182.9 cm; Wt 129.2 kg
[~2024-01-14 08:28] MED LIST changes: +Lactated Ringer's 1,000 ML IV ONE; +propofoL 50 ML IV ONE
[2024-01-14] MEDS ORDERED: Lactated Ringer's 1,000 ML IV ONE (09:43)
[2024-01-14 10:55] VITALS: BP 112/72
== END 2024-01-14 10:49 | disposition home or self-care (01) ==
LOC: ORSCSDS 08:28
PROVIDERS: Specialist
PROC: 0DB68ZX Excision of Stomach, Via Natural or Artificial Opening Endoscopic, Diagnostic (ICD-10-PCS; principal; 2024-01-14 09:45)
PROC: 0DBE8ZX Excision of Large Intestine, Via Natural or Artificial Opening Endoscopic, Diagnostic (ICD-10-PCS; principal; 2024-01-14 09:45)
PROC: 0DB98ZX Excision of Duodenum, Via Natural or Artificial Opening Endoscopic, Diagnostic (ICD-10-PCS; principal; 2024-01-14 09:45)
DX: R10.13 Epigastric pain (principal); K50.90 Crohn's disease, unspecified, without complications; K29.80 Duodenitis without bleeding; K29.70 Gastritis, unspecified, without bleeding
CPT/HCPCS: 88305; 88342; J2704; J7120

== ENCOUNTER → 2024-05-03 | Outpatient (CLI) | payer MEDICARE, OTHER ==
[~2024-05-03] MED LIST changes: -Lactated Ringer's 1,000 ML IV ONE; -propofoL 50 ML IV ONE
[2024-05-03 14:19] LABS: U Amphetamine Screen Not Detected; U Barbituate Screen Not Detected; U Benzodiazapine Screen Not Detected; U Buprenorphine Screen Not Detected; U Cannabinoids Screen Not Detected; U Cocaine Screen Not Detected; U Methadone Screen Not Detected; U Methamphetamine Screen Not Detected; U Opiates Screen Not Detected; U Oxycodone Screen Not Detected; U Phencyclidine Screen Not Detected
== END ==
LOC: LAB 10:30 → LAB SHORT 10:30
PROVIDERS: Physician Assistant
DX: K50.018 Crohn's disease of small intestine with other complication (principal); G89.4 Chronic pain syndrome; Z79.899 Other long term (current) drug therapy

== ENCOUNTER 2024-05-22 08:09 | Emergency (ER) | payer MEDICARE, OTHER ==
[~2024-05-22] VITALS: Ht 182.9 cm; Wt 133.8 kg
[2024-05-22 10:02] LABS: BASOPHILS ABSOLUTE AUTO 0.05 K/mm3 (0.00-0.23); BASOPHILS PERCENT AUTO 1 % (0-2); EOSINOPHILS ABSOLUTE AUTO 0.12 K/mm3 (0.00-0.68); EOSINOPHILS PERCENT AUTO 2 % (0-6); Hematocrit 48.1 % (37.0-53.0); Hemoglobin 16.6 g/dL (13.5-17.5); IMMATURE GRAN ABSOLUTE AUTO 0.05 K/mm3 (0.00-0.10); IMMATURE GRAN PERCENT AUTO 1 % (0-1); LYMPHOCYTES ABSOLUTE AUTO 1.94 K/mm3 (0.84-5.20); LYMPHOCYTES PERCENT AUTO 29 % (21-46); MONOCYTES ABSOLUTE AUTO 0.53 K/mm3 (0.16-1.47); MONOCYTES PERCENT AUTO 8 % (4-13); Mean Corpuscular HGB 30.9 pg (26.0-34.0); Mean Corpuscular HGB Conc 34.5 g/dL (31.5-36.5); Mean Corpuscular Volume 90 fL (80-100); Mean Platelet Volume 9.5 fL (9.1-12.4); NEUTROPHILS PERCENT AUTO 60 % (41-73); Platelet Count 261 K/mm3 (150-400); RDW Coefficient Variation 12.2 % (11.7-14.2); Red Blood Cell Count 5.37 M/mm3 (4.30-5.90); White Blood Cell Count 6.79 K/mm3 (4.00-11.30)
[2024-05-22 10:24] LABS: Albumin, Blood 3.7 g/dL (3.4-5.0); Bilirubin, Total 0.7 mg/dL (0.1-1.0); Bun/Creatinine Ratio 16.1 (12.0-20.0); Calcium, Blood 8.8 mg/dL (8.5-10.1); Creatinine, Blood 0.93 mg/dL (0.60-1.20); Globulin, Blood 3.6 g/dL (2.2-4.0); Potassium, Blood 3.9 mmol/L (3.5-5.5); Total Protein, Blood 7.3 g/dL (6.4-8.2)
[2024-05-22 13:07] LABS: Source, Urine Clean Catch
[2024-05-22 13:17] LABS: Appearance, Urine Clear (Clear); Bilirubin, Urine Neg (Neg); Blood, Urine Neg (Neg); Color, Urine Yellow (P-Yellow); Glucose Qualitative, Urine Neg (Neg); Ketones, Urine Neg (Neg); Leukocyte Esterase, Urine Neg (Neg); Nitrite, Urine Neg (Neg); Protein, Urine Neg (Neg); Specific Gravity, Urine 1.015 (1.003-1.022); Urobilinogen, Urine NORM (Normal)
[2024-05-22] MEDS ORDERED: Ondansetron HCl 2 MG / ML 2ML Vial IV ONE (13:40)
[2024-05-22] MEDS ORDERED: HYDROmorphone HCl/Pf 1MG SYR IV ONE (13:40)
[2024-05-22] MEDS ORDERED: Ketorolac Tromethamine 30mg Vial IV ONE (13:40)
[2024-05-22 14:11] VITALS: BP 113/81
== END 2024-05-22 14:15 | disposition home or self-care (01) ==
LOC: ER 08:09
PROVIDERS: Physician Assistant; Student in an Organized Health Care Education/Training Program
DX: R10.31 Right lower quadrant pain (principal); Z79.899 Other long term (current) drug therapy
CPT/HCPCS: 74177; 80053; 81003; 83735; 85025; 96374-59; 96375; 99284-25; J1171; J1885; J2405; Q9967

== ENCOUNTER → 2024-12-10 | Outpatient (CLI) | payer MEDICARE, OTHER ==
[~2024-12-10] MED LIST changes: +STELARA90 MG/1 ML
[2024-12-15 15:06] LABS: CALCIUM, URINE - PER 24H 89 mg/d (100-250); CALCIUM, URINE - PER VOLUME 4.9 mg/dL; CHLORIDE, URINE - PER 24H 149 mmol/d (140-250); CHLORIDE, URINE - PER VOLUME 82 mmol/L; CITRIC ACID, URINE - PER 24H 238 mg/d (320-1240); CITRIC ACID,URINE - PER VOLUME 131 mg/L; CREATININE, URINE - PER 24H 3331 mg/d (1000-2500); CREATININE, URINE - PER VOLUME 183 mg/dL; HOURS COLLECTED 24 hr; MAGNESIUM, URINE - PER VOLUME 1.8 mg/dL; MAGNESIUM, URINE PER 24H 33 mg/d (12-199); OXALATE, URINE - PER 24H 71 mg/d (16-49); OXALATE, URINE - PER VOLUME 39 mg/L; PH, URINE 5.71 (5.00-7.50); PHOSPHORUS, URINE - PER 24H 928 mg/d (400-1300); PHOSPHORUS, URINE - PER VOLUME 51 mg/dL; POTASSIUM, URINE - PER 24H 55 mmol/d (25-125); POTASSIUM, URINE - PER VOLUME 30 mmol/L; SODIUM, URINE - PER 24H 157 mmol/d (51-286); SODIUM, URINE - PER VOLUME 86 mmol/L; SULFATE, URINE - PER 24H 36 mmol/d (6-30); SULFATE, URINE - PER VOLUME 20 mmol/L; TOTAL VOLUME 1820 mL; URIC ACID, URINE - PER 24H 925 mg/d (250-750); URIC ACID, URINE - PER VOLUME 50.8 mg/dL; URINE SUPERSATURATION INTERP Abnormal; URINE SUPERSATURATION, CAHPO4 0.38; URINE SUPERSATURATION, CAOX 6.37; URINE SUPERSATURATION, UA CALC 1.31
== END ==
LOC: LAB SHORT 09:00 → LAB 09:00
PROVIDERS: Urology
DX: N20.0 Calculus of kidney (principal)
CPT/HCPCS: 36415; 81003; 82131; 82140; 82340; 82436; 82507; 82570; 83735; 83935; 83945; 84105; 84133; 84300; 84392; 84560

== ENCOUNTER 2025-01-12 10:19 | Inpatient (IN) | payer MEDICARE, OTHER ==
[~2025-01-12] VITALS: Ht 182.9 cm; Wt 135.2 kg
[2025-01-12] MEDS ORDERED: Ketorolac Tromethamine 15mg Vial IV ONE (11:20)
[2025-01-12] MEDS ORDERED: Ondansetron HCl 2 MG / ML 2ML Vial IV ONE (11:20)
[2025-01-12 11:28] LABS: BASOPHILS ABSOLUTE AUTO 0.04 K/mm3 (0.00-0.23); BASOPHILS PERCENT AUTO 0 % (0-2); EOSINOPHILS ABSOLUTE AUTO 0.11 K/mm3 (0.00-0.68); EOSINOPHILS PERCENT AUTO 1 % (0-6); Hematocrit 47.7 % (37.0-53.0); Hemoglobin 16.3 g/dL (13.5-17.5); IMMATURE GRAN ABSOLUTE AUTO 0.06 K/mm3 (0.00-0.10); IMMATURE GRAN PERCENT AUTO 0 % (0-1); LYMPHOCYTES ABSOLUTE AUTO 1.83 K/mm3 (0.84-5.20); LYMPHOCYTES PERCENT AUTO 13 % (21-46); MONOCYTES ABSOLUTE AUTO 1.06 K/mm3 (0.16-1.47); MONOCYTES PERCENT AUTO 8 % (4-13); Mean Corpuscular HGB Conc 34.2 g/dL (31.5-36.5); Mean Corpuscular Volume 89 fL (80-100); NEUTROPHILS ABSOLUTE AUTO 10.98 K/mm3 (1.96-9.15); NEUTROPHILS PERCENT AUTO 78 % (41-73); NRBC ABSOLUTE 0.00 K/mm3 (0.00-0.02); NRBC Auto 0.0 /100 WBC (0.0-0.2); Platelet Count 280 K/mm3 (150-400); RDW Coefficient Variation 12.3 % (11.7-14.2); RDW Standard Deviation 40.1 fL (35.1-46.3)
[2025-01-12 11:47] LABS: Alanine Aminotransfer (ALT/SGP 182.0 U/L (12-78); Albumin, Blood 4.1 g/dL (3.4-5.0); Albumin/Globulin Ratio 1.1 (0.8-1.8); Anion Gap 11.0 mmol/L (3-11); Aspartate Aminotrans (AST/SGOT 56.0 U/L (12-37); Bilirubin, Total 0.9 mg/dL (0.1-1.0); Blood Urea Nitrogen 13.0 mg/dL (8-24); CO2, Blood 22.0 mmol/L (21-32); Calcium, Blood 8.8 mg/dL (8.5-10.1); Chloride, Blood 106.0 mmol/L (98-108); Creatinine, Blood 0.93 mg/dL (0.60-1.20); Globulin, Blood 3.7 g/dL (2.2-4.0); Glucose, Blood 159.0 mg/dL (70-99); Potassium, Blood 3.7 mmol/L (3.5-5.5); Sodium, Blood 135.0 mmol/L (136-145); Total Protein, Blood 7.8 g/dL (6.4-8.2)
[2025-01-12] MEDS ORDERED: HYDROmorphone HCl/Pf 1MG SYR IV ONE (12:55)
[2025-01-12] MEDS ORDERED: FentaNYL Citrate 50 MCG/ML 2 ML Injection IV PRN ×2 (13:00→17:00)
[2025-01-12] MEDS ORDERED: NS 1,000 ML IV SCH (13:05)
[2025-01-12] MEDS ORDERED: Ondansetron HCl 2 MG / ML 2ML Vial IV PRN (13:05)
[2025-01-12] MEDS ORDERED: Lidocaine 2% Jelly Uro-Jet TOP ONE (13:15)
[2025-01-12 16:37] VITALS: BP 110/80
--- NOTE | 2025-01-12 16:41 | NUR ---
PT TO ROOM 224 FROM ED. SBO. ED UNABLE TO PASS NG X-2. HISTORY OF DIFFICULTY PLACING NG PER PT. PT MEDICATED FOR NAUSE. RATES ABD PAIN 03/18. PAGED FOR ORDERS.
[2025-01-12] MEDS ORDERED: HYDROmorphone HCl/Pf 1MG SYR IV PRN (17:25)
--- NOTE | 2025-01-12 18:30 | NUR ---
16 FR ASHLEYM PK NGT PLACED WITH ONE ATTEMPT. SECURED. ATTACHED TO lis. WILL CONTINUE TO MONITOR.
[2025-01-12 19:41] VITALS: BP 142/90
[2025-01-12 23:58] VITALS: BP 131/95
--- NOTE | 2025-01-13 00:05 | NUR ---
ASSUMPTION OF CARE RECEIVED REPORT FROM DONALD YANEZ. PT ASLEEP c RISE/FALL OF CHEST. VSS, ELEVATED HR. NG TUBE c DARK GREEN OUTPUT. CALL LIGHT IN REACH.
[2025-01-13 03:39] VITALS: BP 129/91
[2025-01-13] MEDS ORDERED: Pantoprazole Sodium 40 MG Injection IV SCH (06:00)
--- NOTE | 2025-01-13 06:32 | NUR ---
SHIFT SUMMARY S/P SBO. NO ACUTE CHANGES OVERNIGHT. VSS. NPO. NG TUBE TO LIS c GREEN OUTPUT. IV FLUIDS INFUSING PER EMAR. PT REPORTS PAIN TOLERABLE. MEDICATED PER EMAR. REPORT GIVEN TO DAY RN. CALL LIGHT IN REACH, BED IN LOWEST POSITION.
[2025-01-13 06:44] LABS: BASOPHILS ABSOLUTE AUTO 0.02 K/mm3 (0.00-0.23); BASOPHILS PERCENT AUTO 0 % (0-2); EOSINOPHILS ABSOLUTE AUTO 0.12 K/mm3 (0.00-0.68); EOSINOPHILS PERCENT AUTO 2 % (0-6); Hematocrit 43.1 % (37.0-53.0); Hemoglobin 14.4 g/dL (13.5-17.5); IMMATURE GRAN ABSOLUTE AUTO 0.01 K/mm3 (0.00-0.10); IMMATURE GRAN PERCENT AUTO 0 % (0-1); LYMPHOCYTES ABSOLUTE AUTO 1.02 K/mm3 (0.84-5.20); LYMPHOCYTES PERCENT AUTO 20 % (21-46); MONOCYTES ABSOLUTE AUTO 1.05 K/mm3 (0.16-1.47); MONOCYTES PERCENT AUTO 20 % (4-13); Mean Corpuscular HGB Conc 33.4 g/dL (31.5-36.5); Mean Corpuscular Volume 90 fL (80-100); NEUTROPHILS ABSOLUTE AUTO 2.97 K/mm3 (1.96-9.15); NEUTROPHILS PERCENT AUTO 57 % (41-73); NRBC ABSOLUTE 0.00 K/mm3 (0.00-0.02); NRBC Auto 0.0 /100 WBC (0.0-0.2); Platelet Count 230 K/mm3 (150-400); RDW Coefficient Variation 12.6 % (11.7-14.2); RDW Standard Deviation 41.0 fL (35.1-46.3)
[2025-01-13 07:05] LABS: Alanine Aminotransfer (ALT/SGP 117.0 U/L (12-78); Albumin, Blood 3.2 g/dL (3.4-5.0); Albumin/Globulin Ratio 0.9 (0.8-1.8); Anion Gap 10.0 mmol/L (3-11); Aspartate Aminotrans (AST/SGOT 30.0 U/L (12-37); Bilirubin, Total 1.3 mg/dL (0.1-1.0); Blood Urea Nitrogen 18.0 mg/dL (8-24); CO2, Blood 27.0 mmol/L (21-32); Calcium, Blood 8.2 mg/dL (8.5-10.1); Chloride, Blood 105.0 mmol/L (98-108); Creatinine, Blood 0.9 mg/dL (0.60-1.20); Globulin, Blood 3.4 g/dL (2.2-4.0); Glucose, Blood 121.0 mg/dL (70-99); Potassium, Blood 3.7 mmol/L (3.5-5.5); Sodium, Blood 138.0 mmol/L (136-145); Total Protein, Blood 6.6 g/dL (6.4-8.2)
[2025-01-13 07:33] VITALS: BP 140/93
[2025-01-13] MEDS ORDERED: Ciprofloxacin 400MG/D5 200ML 200 ML IV SCH (08:00)
[2025-01-13] MEDS ORDERED: MetroNIDAZOLE 500MG/NS 100 ml 100 ML IV SCH (08:00)
[2025-01-13] MEDS ORDERED: Enoxaparin 40 MG/0.4 ML SYR SC SCH (09:00)
[2025-01-13] MEDS ORDERED: NS 1,000 ML BAG IR SCH (10:15)
--- NOTE | 2025-01-13 12:00 | NUR ---
Pt. is awake in bed when he welcomes my visit. Pt. is pleasant, but displays evidence of abdominal discomfort. Faciltated a life review. COnsidered matters of hugo and belief. Pt. displayed evidence of engagement and have been encouraged. Prayed with the Pt. Pt. verbalized gratitude for the spiritual care visit and welcomed this clinical program coordinator to return.
[2025-01-13] MEDS ORDERED: Benzocaine Oral Spray 0.5ML UD MT PRN (13:10)
[2025-01-13 15:17] VITALS: BP 135/97
--- NOTE | 2025-01-13 17:45 | NUR ---
END OF SHIFT PT RESTING. PASSING SMALL AMTS OF FLATUS. NG OUTPUT MINIMAL. IV INFUSING LEFT ARM. WILL CONTINUE TO MONITOR.
[2025-01-13 19:25] VITALS: BP 131/92
[2025-01-14 04:01] VITALS: BP 164/91
--- NOTE | 2025-01-14 04:39 | NUR ---
SHIFT SUMMARY S/P SBO. NO ACUTE CHANGES OVERNIGHT. VSS. NPO. NG TUBE TO LIS c GREEN OUTPUT. PT REPORTS PASSING OF FLATUS. IV FLUIDS INFUSING PER EMAR. PT REPORTS CENTRAL ABD PAIN TOLERABLE, MEDICATED PER EMAR. VOIDING. WILL REPORT TO DAY RN, CALL LIGHT IN REACH, BED IN LOWEST POSITION.
[2025-01-14 05:37] LABS: BASOPHILS ABSOLUTE AUTO 0.04 K/mm3 (0.00-0.23); BASOPHILS PERCENT AUTO 1 % (0-2); EOSINOPHILS ABSOLUTE AUTO 0.17 K/mm3 (0.00-0.68); EOSINOPHILS PERCENT AUTO 2 % (0-6); Hematocrit 42.6 % (37.0-53.0); Hemoglobin 14.5 g/dL (13.5-17.5); IMMATURE GRAN ABSOLUTE AUTO 0.02 K/mm3 (0.00-0.10); IMMATURE GRAN PERCENT AUTO 0 % (0-1); LYMPHOCYTES ABSOLUTE AUTO 1.39 K/mm3 (0.84-5.20); LYMPHOCYTES PERCENT AUTO 20 % (21-46); MONOCYTES ABSOLUTE AUTO 1.06 K/mm3 (0.16-1.47); MONOCYTES PERCENT AUTO 15 % (4-13); Mean Corpuscular HGB Conc 34.0 g/dL (31.5-36.5); Mean Corpuscular Volume 91 fL (80-100); NEUTROPHILS ABSOLUTE AUTO 4.37 K/mm3 (1.96-9.15); NEUTROPHILS PERCENT AUTO 62 % (41-73); NRBC ABSOLUTE 0.00 K/mm3 (0.00-0.02); NRBC Auto 0.0 /100 WBC (0.0-0.2); Platelet Count 217 K/mm3 (150-400); RDW Coefficient Variation 12.4 % (11.7-14.2); RDW Standard Deviation 40.9 fL (35.1-46.3)
[2025-01-14 06:35] LABS: Alanine Aminotransfer (ALT/SGP 88.0 U/L (12-78); Albumin, Blood 3.2 g/dL (3.4-5.0); Albumin/Globulin Ratio 0.8 (0.8-1.8); Anion Gap 6.0 mmol/L (3-11); Aspartate Aminotrans (AST/SGOT 22.0 U/L (12-37); Bilirubin, Total 1.1 mg/dL (0.1-1.0); Blood Urea Nitrogen 11.0 mg/dL (8-24); CO2, Blood 27.0 mmol/L (21-32); Calcium, Blood 8.1 mg/dL (8.5-10.1); Chloride, Blood 106.0 mmol/L (98-108); Creatinine, Blood 0.9 mg/dL (0.60-1.20); Globulin, Blood 3.8 g/dL (2.2-4.0); Glucose, Blood 110.0 mg/dL (70-99); Potassium, Blood 3.4 mmol/L (3.5-5.5); Sodium, Blood 136.0 mmol/L (136-145); Total Protein, Blood 7.0 g/dL (6.4-8.2)
[2025-01-14 07:45] VITALS: BP 135/95
[2025-01-14] MEDS ORDERED: Potassium Chl 20MEQ/Water100ML 100 ML IV STA (09:43)
--- NOTE | 2025-01-14 11:03 | NUR ---
NGT CLAMPED, PT TO IMAGING AT 1030 FOR SMALL BOWEL FOLLOW THROUGH.
[2025-01-14 14:10] VITALS: BP 147/92
--- NOTE | 2025-01-14 16:38 | NUR ---
SUMMARY: VSS, A/O. PT COMPLETED SMALL BOWEL FT TODAY. NGT IS CURRENTLY CLAMPED, PT DENIES N/V AND IS PASSING GAS. NO BM YET. FLUIDS AND ANTIBIOTICS INFUSING. MEDICATED PER EMAR FOR PAIN, 1 MG DILAUDID ABOUT Q2. PT USES CALL LIGHT AND MAKES NEEDS KNOWN.
[2025-01-14 20:19] VITALS: BP 135/95
--- NOTE | 2025-01-15 03:40 | NUR ---
SHIFT SUMMARY S/P SBO. NO ACUTE CHANGES T/O SHIFT. NG REMOVED DURING DAY SHIFT. PT DENIES N/V. SEVERAL LIQUID STOOLS TONIGHT, BROWN IN COLOR. IS NPO. PT REPORTS PAIN MANAGED PER EMAR. ABLE TO SHOWER SELF AND AMBULATED IND. IVF AND ABX INFUSING PER ORDERS. PT CURRENTLY RESTING IN BED WITH CALL LIGHT IN REACH. WILL GIVE REPORT TO ONCOMING RN.
[2025-01-15 04:56] VITALS: BP 110/78
[2025-01-15 05:31] LABS: BASOPHILS ABSOLUTE AUTO 0.03 K/mm3 (0.00-0.23); BASOPHILS PERCENT AUTO 0 % (0-2); EOSINOPHILS ABSOLUTE AUTO 0.20 K/mm3 (0.00-0.68); EOSINOPHILS PERCENT AUTO 3 % (0-6); Hematocrit 41.7 % (37.0-53.0); Hemoglobin 14.1 g/dL (13.5-17.5); IMMATURE GRAN ABSOLUTE AUTO 0.04 K/mm3 (0.00-0.10); IMMATURE GRAN PERCENT AUTO 1 % (0-1); LYMPHOCYTES ABSOLUTE AUTO 1.72 K/mm3 (0.84-5.20); LYMPHOCYTES PERCENT AUTO 26 % (21-46); MONOCYTES ABSOLUTE AUTO 0.91 K/mm3 (0.16-1.47); MONOCYTES PERCENT AUTO 14 % (4-13); Mean Corpuscular HGB Conc 33.8 g/dL (31.5-36.5); Mean Corpuscular Volume 91 fL (80-100); NEUTROPHILS ABSOLUTE AUTO 3.79 K/mm3 (1.96-9.15); NEUTROPHILS PERCENT AUTO 57 % (41-73); NRBC ABSOLUTE 0.00 K/mm3 (0.00-0.02); NRBC Auto 0.0 /100 WBC (0.0-0.2); Platelet Count 221 K/mm3 (150-400); RDW Coefficient Variation 12.3 % (11.7-14.2); RDW Standard Deviation 41.0 fL (35.1-46.3)
[2025-01-15 07:23] VITALS: BP 106/80
[2025-01-15 07:41] LABS: Alanine Aminotransfer (ALT/SGP 64.0 U/L (12-78); Albumin, Blood 3.2 g/dL (3.4-5.0); Albumin/Globulin Ratio 0.9 (0.8-1.8); Anion Gap 8.0 mmol/L (3-11); Aspartate Aminotrans (AST/SGOT 16.0 U/L (12-37); Bilirubin, Total 0.7 mg/dL (0.1-1.0); Blood Urea Nitrogen 13.0 mg/dL (8-24); CO2, Blood 25.0 mmol/L (21-32); Calcium, Blood 8.4 mg/dL (8.5-10.1); Chloride, Blood 110.0 mmol/L (98-108); Creatinine, Blood 1.01 mg/dL (0.60-1.20); Globulin, Blood 3.6 g/dL (2.2-4.0); Glucose, Blood 100.0 mg/dL (70-99); Potassium, Blood 3.2 mmol/L (3.5-5.5); Sodium, Blood 140.0 mmol/L (136-145); Total Protein, Blood 6.8 g/dL (6.4-8.2)
[2025-01-15] MEDS ORDERED: DiphenhydrAMINE HCl 50 MG/ML 1ML Vial IV PRN (13:40)
[2025-01-15] MEDS ORDERED: HYDROmorphone HCl/Pf 1MG SYR IV PRN (13:40)
[2025-01-15 14:02] VITALS: BP 117/81
--- NOTE | 2025-01-15 16:20 | NUR ---
Pt. is awake inbed and welcomes my visit. Pt.is pleasant and verbalized that he is improving and expects to discharge tomorrow. Listened with empathy and encouragement. Pt. displayed evidence of being hopeful. Prayed with the Pt. Pt. verbalized gratitude for the spiritual care visit.
--- NOTE | 2025-01-15 16:56 | NUR ---
SUMMARY NO ACUTE CHANGES T/O SHIFT. PT HAVING BMS. ADVANCED TO FULL LIQUIDS TODAY, TOLERATING. IV PAIN MEDS DECREASED IN FREQUENCE FROM Q2 PRN TO Q4 PRN. PT INDEPDENT IN ROOM. CALL LIGHT IN REACH.
--- NOTE | 2025-01-15 17:24 | NUR ---
turned over care to hyun abdalla rn.
--- NOTE | 2025-01-15 18:11 | NUR ---
ASSUMED CARE OF PT @9110. PT MEDICATED WITH V DIALUDID. INDEPENDENT IN ROOM. NO CHANGES FROM PETR B SUMMARY NOTE.
[2025-01-15 20:14] VITALS: BP 122/86
[2025-01-16 04:34] VITALS: BP 106/74
[2025-01-16 05:39] LABS: BASOPHILS ABSOLUTE AUTO 0.04 K/mm3 (0.00-0.23); BASOPHILS PERCENT AUTO 1 % (0-2); EOSINOPHILS ABSOLUTE AUTO 0.33 K/mm3 (0.00-0.68); EOSINOPHILS PERCENT AUTO 5 % (0-6); Hematocrit 40.0 % (37.0-53.0); Hemoglobin 13.4 g/dL (13.5-17.5); IMMATURE GRAN ABSOLUTE AUTO 0.05 K/mm3 (0.00-0.10); IMMATURE GRAN PERCENT AUTO 1 % (0-1); LYMPHOCYTES ABSOLUTE AUTO 2.04 K/mm3 (0.84-5.20); LYMPHOCYTES PERCENT AUTO 34 % (21-46); MONOCYTES ABSOLUTE AUTO 0.68 K/mm3 (0.16-1.47); MONOCYTES PERCENT AUTO 11 % (4-13); Mean Corpuscular HGB Conc 33.5 g/dL (31.5-36.5); Mean Corpuscular Volume 91 fL (80-100); NEUTROPHILS ABSOLUTE AUTO 2.95 K/mm3 (1.96-9.15); NEUTROPHILS PERCENT AUTO 48 % (41-73); NRBC ABSOLUTE 0.00 K/mm3 (0.00-0.02); NRBC Auto 0.0 /100 WBC (0.0-0.2); Platelet Count 210 K/mm3 (150-400); RDW Coefficient Variation 12.3 % (11.7-14.2); RDW Standard Deviation 41.1 fL (35.1-46.3)
--- NOTE | 2025-01-16 05:55 | NUR ---
NOC SUMMARY- PT HAS RESTED WELL THIS SHIFT. PT REPORTS HE WAS ABLE TO SLEEP THIS SHIFT. PT PAIN MANAGED WELL. PT DENIES ANY OTHER ISSUES. CALL LIGHT IN REACH.
[2025-01-16 06:03] LABS: Anion Gap 8.0 mmol/L (3-11); Blood Urea Nitrogen 11.0 mg/dL (8-24); CO2, Blood 23.0 mmol/L (21-32); Calcium, Blood 8.1 mg/dL (8.5-10.1); Chloride, Blood 110.0 mmol/L (98-108); Creatinine, Blood 1.01 mg/dL (0.60-1.20); Glucose, Blood 104.0 mg/dL (70-99); Potassium, Blood 3.4 mmol/L (3.5-5.5); Sodium, Blood 138.0 mmol/L (136-145)
[2025-01-16 07:33] VITALS: BP 107/71
[2025-01-16] MEDS ORDERED: Lactobacil 2-S.Thermo-Bifido 1 1 Cap PO SCH (09:00)
[2025-01-16] MEDS ORDERED: OxyCODONE 7.5 mg/Acetam 325 mg TABLET PO PRN (10:05)
--- NOTE | 2025-01-16 13:22 | NUR ---
PATIENT WALKING IN HALLS.OFFERED TO SET UP CHAIR.PATIENT DECLINED.
[2025-01-16 14:26] VITALS: BP 137/94
--- NOTE | 2025-01-16 17:22 | NUR ---
SHIFT SUMMARY: PATIENT MEDICATED FOR PAIN TO ABDOMEN PER EMAR c GOOD EFFECT. PATIENT ON FL, TOLERATING WELL. PATIENT HAD BROWN BM THIS SHIFT, CONTINENT OF BLADDER AND AMBULATES TO BATHROOM INDEPENDENTLY. PATIENT AMBULATED IN HALLWAY X4, TOLEARTED WELL. PATIENT RECEIVED SCHEDULED MEDS PER EMAR. VITAL SIGNS REVIEWED. PATIENT A/OX4, PLEASANT AND COOPERATIVE c CARE, CALLS APPROPRIATELY AND ABLE TO MAKE NEEDS KNOWN. BED IN LOWEST POSITION. CALL LIGHT IN REACH.
[2025-01-16 19:35] VITALS: BP 128/96
--- NOTE | 2025-01-16 23:53 | NUR ---
REPORT FROM RENATA DIETZ
--- NOTE | 2025-01-17 02:57 | NUR ---
RN TO ROOM TO ROUND; PT ASLEEP WITH EQUAL AND UNLABORED BREATHING. CALL LIGHT WITHIN REACH.
[2025-01-17 04:46] VITALS: BP 117/77
--- NOTE | 2025-01-17 04:49 | NUR ---
SHIFT SUMMARY PT WITH NO ACUTE EVENTS OVERNIGHT; PT DID HAVE C/O PAIN AND WAS MEDICATED PER EMAR WITH VERBAL INSTRUCTION TO NOTIFY STAFF IF PAIN DID NOT RESOLVE. PT TAKEN OVER MID SHIFT FROM SURGICAL SERVICES DIRECTOR.
[2025-01-17 05:40] LABS: Anion Gap 9.0 mmol/L (3-11); Blood Urea Nitrogen 8.0 mg/dL (8-24); CO2, Blood 25.0 mmol/L (21-32); Calcium, Blood 8.7 mg/dL (8.5-10.1); Chloride, Blood 105.0 mmol/L (98-108); Creatinine, Blood 1.0 mg/dL (0.60-1.20); Glucose, Blood 99.0 mg/dL (70-99); Potassium, Blood 3.2 mmol/L (3.5-5.5); Sodium, Blood 136.0 mmol/L (136-145)
[2025-01-17 07:56] VITALS: BP 122/93
[2025-01-17] MEDS ORDERED: OXYACE7.5T PO (12:49)
[2025-01-17] MEDS ORDERED: VISBIOME 112.51 EACH PO (12:50)
[2025-01-17] MEDS ORDERED: METR500 PO (12:51)
[2025-01-17] MEDS ORDERED: CIPR500 PO (12:51)
[2025-01-17] MEDS ORDERED: POTCHL20ER PO (12:51)
--- NOTE | 2025-01-17 13:52 | NUR ---
DISCHARGE PT PAIN CONTROLLED TODAY PER EMAR. PT REPORTS IMPROVEMENT AND LOOKING FORWARD TO DISCHARGING. MEDICATIONS SENT [facility] PER REQUEST. IND IN ROOM. PT DENIES NEEDS NOW. ALL BELONINGS WITH PATIENT. ESCORTED OUT VIA WHEELCHAIR.
== END 2025-01-17 13:45 | disposition home or self-care (01) | DRG 386 ==
LOC: ER 10:19 → SURS 10:20 → ERHOLD 10:20 → SURS 16:34
PROVIDERS: Physician Assistant; ADMIT Family Medicine
PROC: 0D9670Z Drainage of Stomach with Drainage Device, Via Natural or Artificial Opening (ICD-10-PCS; principal; 2025-01-12)
PROC: 3E03329 Introduction of Other Anti-infective into Peripheral Vein, Percutaneous Approach (ICD-10-PCS; 2025-01-13)
DX: K50.912 Crohn's disease, unspecified, with intestinal obstruction (principal); E87.1 Hypo-osmolality and hyponatremia; Z68.41 Body mass index [BMI] 40.0-44.9, adult; R79.89 Other specified abnormal findings of blood chemistry; E66.9 Obesity, unspecified; G47.33 Obstructive sleep apnea (adult) (pediatric); E87.6 Hypokalemia; Z79.899 Other long term (current) drug therapy; Z79.891 Long term (current) use of opiate analgesic; Z87.19 Personal history of other diseases of the digestive system; Z87.442 Personal history of urinary calculi; Z90.49 Acquired absence of other specified parts of digestive tract; Z90.89 Acquired absence of other organs
CPT/HCPCS: 36415; 71045; 74177; 74250; 80048; 80053; 85025; 93005; 93010; 94762; 96361; 96365; 96372; 96374-59; 96375; 96376; 99285-25; A9270; G0378; J0744; J1171; J1200; J1650; J1885; J2405; J2470; J3010; J3480; J7030; J7120; Q9967

== ENCOUNTER → 2025-04-01 | Outpatient (CLI) | payer MEDICARE, OTHER ==
[~2025-04-01] MED LIST changes: +CIPR500 PO; +METR500 PO; +POTCHL20ER PO
[2025-04-01 15:01] LABS: BASOPHILS ABSOLUTE AUTO 0.03 K/mm3 (0.00-0.23); BASOPHILS PERCENT AUTO 0 % (0-2); EOSINOPHILS ABSOLUTE AUTO 0.12 K/mm3 (0.00-0.68); EOSINOPHILS PERCENT AUTO 2 % (0-6); Hematocrit 43.8 % (37.0-53.0); Hemoglobin 15.3 g/dL (13.5-17.5); IMMATURE GRAN ABSOLUTE AUTO 0.02 K/mm3 (0.00-0.10); IMMATURE GRAN PERCENT AUTO 0 % (0-1); LYMPHOCYTES ABSOLUTE AUTO 1.84 K/mm3 (0.84-5.20); LYMPHOCYTES PERCENT AUTO 27 % (21-46); MONOCYTES ABSOLUTE AUTO 0.66 K/mm3 (0.16-1.47); MONOCYTES PERCENT AUTO 10 % (4-13); Mean Corpuscular HGB Conc 34.9 g/dL (31.5-36.5); Mean Corpuscular Volume 85 fL (80-100); NEUTROPHILS ABSOLUTE AUTO 4.15 K/mm3 (1.96-9.15); NEUTROPHILS PERCENT AUTO 61 % (41-73); NRBC ABSOLUTE 0.00 K/mm3 (0.00-0.02); NRBC Auto 0.0 /100 WBC (0.0-0.2); Platelet Count 322 K/mm3 (150-400); RDW Coefficient Variation 12.3 % (11.7-14.2); RDW Standard Deviation 38.3 fL (35.1-46.3)
[2025-04-01 15:12] LABS: Alanine Aminotransfer (ALT/SGP 79.0 U/L (12-78); Albumin, Blood 3.9 g/dL (3.4-5.0); Albumin/Globulin Ratio 1.0 (0.8-1.8); Anion Gap 17.0 mmol/L (6-16); Aspartate Aminotrans (AST/SGOT 32.0 U/L (12-37); Bilirubin, Total 0.5 mg/dL (0.1-1.0); Blood Urea Nitrogen 12.0 mg/dL (8-24); CO2, Blood 24.0 mmol/L (21-32); Calcium, Blood 9.3 mg/dL (8.5-10.1); Chloride, Blood 105.0 mmol/L (98-108); Creatinine, Blood 1.05 mg/dL (0.60-1.20); Globulin, Blood 4.0 g/dL (2.2-4.0); Glucose, Blood 96.0 mg/dL (70-99); Potassium, Blood 3.6 mmol/L (3.5-5.5); Sodium, Blood 142.0 mmol/L (136-145); Total Protein, Blood 7.9 g/dL (6.4-8.2)
== END ==
LOC: LAB 14:57 → LAB SHORT 14:57
PROVIDERS: Family Medicine
DX: Z87.19 Personal history of other diseases of the digestive system (principal)
CPT/HCPCS: 80053; 85025

== ENCOUNTER 2025-04-15 17:29 | Emergency (ER) | payer MEDICARE, OTHER ==
[~2025-04-15] VITALS: Ht 182.9 cm; Wt 133.4 kg
[2025-04-15] MEDS ORDERED: Ondansetron HCl 2 MG / ML 2ML Vial IV ONE (18:20)
[2025-04-15 18:47] LABS: BASOPHILS ABSOLUTE AUTO 0.06 K/mm3 (0.00-0.23); BASOPHILS PERCENT AUTO 1 % (0-2); EOSINOPHILS ABSOLUTE AUTO 0.19 K/mm3 (0.00-0.68); EOSINOPHILS PERCENT AUTO 2 % (0-6); Hematocrit 46.2 % (37.0-53.0); Hemoglobin 15.5 g/dL (13.5-17.5); IMMATURE GRAN ABSOLUTE AUTO 0.02 K/mm3 (0.00-0.10); IMMATURE GRAN PERCENT AUTO 0 % (0-1); LYMPHOCYTES ABSOLUTE AUTO 2.35 K/mm3 (0.84-5.20); LYMPHOCYTES PERCENT AUTO 26 % (21-46); MONOCYTES ABSOLUTE AUTO 0.89 K/mm3 (0.16-1.47); MONOCYTES PERCENT AUTO 10 % (4-13); Mean Corpuscular HGB Conc 33.5 g/dL (31.5-36.5); Mean Corpuscular Volume 89 fL (80-100); NEUTROPHILS ABSOLUTE AUTO 5.41 K/mm3 (1.96-9.15); NEUTROPHILS PERCENT AUTO 61 % (41-73); NRBC ABSOLUTE 0.00 K/mm3 (0.00-0.02); NRBC Auto 0.0 /100 WBC (0.0-0.2); Platelet Count 302 K/mm3 (150-400); RDW Coefficient Variation 12.4 % (11.7-14.2); RDW Standard Deviation 40.5 fL (35.1-46.3)
[2025-04-15 19:17] LABS: Alanine Aminotransfer (ALT/SGP 72.0 U/L (12-78); Albumin, Blood 3.8 g/dL (3.4-5.0); Albumin/Globulin Ratio 1.0 (0.8-1.8); Anion Gap 9.0 mmol/L (3-11); Aspartate Aminotrans (AST/SGOT 36.0 U/L (12-37); Bilirubin, Total 0.8 mg/dL (0.1-1.0); Blood Urea Nitrogen 12.0 mg/dL (8-24); CO2, Blood 21.0 mmol/L (21-32); Calcium, Blood 9.1 mg/dL (8.5-10.1); Chloride, Blood 112.0 mmol/L (98-108); Creatinine, Blood 0.93 mg/dL (0.60-1.20); Globulin, Blood 3.8 g/dL (2.2-4.0); Glucose, Blood 95.0 mg/dL (70-99); Potassium, Blood 3.6 mmol/L (3.5-5.5); Sodium, Blood 138.0 mmol/L (136-145); Total Protein, Blood 7.6 g/dL (6.4-8.2)
[2025-04-15] MEDS ORDERED: NS 1,000 ML IV SCH (21:40)
[2025-04-15] MEDS ORDERED: HYDROmorphone HCl/Pf 1MG SYR IV ONE (21:40)
[2025-04-15] MEDS ORDERED: DELTASONE20 MG PO (21:47)
[2025-04-15 22:55] VITALS: BP 134/89
== END 2025-04-15 22:55 | disposition home or self-care (01) ==
LOC: ER 17:29
PROVIDERS: Student in an Organized Health Care Education/Training Program
DX: K52.9 Noninfective gastroenteritis and colitis, unspecified (principal); E86.0 Dehydration; K50.90 Crohn's disease, unspecified, without complications; Z79.899 Other long term (current) drug therapy; Z87.891 Personal history of nicotine dependence
CPT/HCPCS: 74177; 80053; 83690; 85025; 96374-59; 96375; 99284-25; J1171; J2405; J7030; J7512; Q9967